=== PATIENT | female | born 1955 | race Caucasian/White ===

== ENCOUNTER 2017-02-19 12:30 | Outpatient (RCR) | payer BC, SELFPAY ==
--- NOTE | 2017-02-03 14:25 | HP.OTEVAL ---
Patient's Visit Information LATONYA LAW is a 61 year old F, referred to Occupational Therapy by Chelsea Robbins DO,, with a diagnosis of left thumb pain. Date of Evaluation: 02/03/17 Occupational Therapist: Vivien Haynes, [facility], CHT - Subjective Subjective: Pt sates she has had left hand pain for almost 5-4 years of pain - pt has had multiple cortisone shots without success. pt states she is working 3 days a week 7 hours a day- pt states following her work days her thumb is painful- pain radiates to IF. This pain limits pt with BADLS and IADLS. - Pain left vector control specialist 5 Pain Intensity Range: 3, 7 - ROM CMC: right 20 left 10 MP: right 50 left 50 IP: right 70 left 55 - Strength Building And Grounds Supervisor: right 50# left 30# Lateral Pinch: right 6# left 6# Tripod Pinch: rigth 4# left 4# with pain - Special Tests CMC Grind: positve - and painful - Goals Goal:: pt will demo a increase in left vector control specialist strength by 10# to increase her ind. with BADLs and IADLS Goal:: pt will report pain no greater than 2/10 with use of ad. eq for joint protction joshua. with BADLS and IADLS. Goal:: pt will dem the understanding of thumb care, ad. eq to protect joints and decrase pain for BADLS . - Rehabilitation General Assessment: pt demo with arthritis deformity of left thumb- pt demo pain with resisitve thumb pinch with mp collapse. pain with resitiance thumb and IF radial motion, Rehabilitation Potential: Fair - Anticipated Interventions Anticipated Interventions: Modalities, Orthoses, Joint Protection/Energy Conservation - Visit Plan Frequency: 1-2x /Week Duration: 3 Weeks General Plan: OT will intiate modalities USx10 min 100% 1.2 3.3 mhz.(to left cmc area) to decrease pain and educate pt on joint protction and ad. eq. to decrease joint stress. pt was given thumb care handout and rec'd Push brace. TEXT: Thank you for the opportunity to evaluate your patient. For Medicare and Medicare HMO plans, please review the plan of care and approve it. It will need to be FAXED BACK to us at [phone] for Medicare purposes. Please let me know if there are questions or concerns regarding this plan of care. Physician Signature: Date:
--- NOTE | 2017-05-12 11:16 | HP.OT.NRP ---
HP - Discharge Summary - Patient Information LATONYA LAW was seen in my office for initial evaluation on 02/03/17. The following Plan of Care was established for this patient: Initial Frequency: 1-2x /Week Initial Duration: 3 Weeks Plan: Cont POC - Anticipated Interventions Anticipated Interventions: Modalities, Orthoses, Joint Protection/Energy Conservation This patient was last seen in our office 02/19/17. Pertinent comments regarding their Occupational therapy will appear below: pt was seen for 5 visits in OT. pt was ed. on work ergo. and pt wearing brace at work and night-pain still limiting pt with work and BADLs. pt was advised to return to for further evaluation. At this point I will be discontinuing this patient from occupational therapy. I would be happy to see this patient again in the future if found appropriate by the physician. Thank you! Vivien Haynes, OTR/L, CHT
== END 2017-02-19 19:00 | disposition home or self-care (01) ==
LOC: OT 12:30
PROVIDERS: Family Provider Family Medicine; PCP Family Medicine; Visit Provider Orthopaedic Surgery
DX: M79.645 Pain in left finger(s) (principal)
CPT/HCPCS: 97035; 97110; 97166

== ENCOUNTER → 2018-02-08 08:04 | Outpatient (CLI) | payer BC, SELFPAY ==
--- NOTE | 2018-02-08 08:07 | BI_ITS ---
MAMMOGRAPHY - BILATERAL SCREENING REASON FOR EXAM: Female, 62 years old. Routine annual screening examination. PERTINENT HISTORY: Non-contributory. Remote left excisional breast biopsy and left stereotactic breast biopsy. TECHNIQUE: Digital bilateral breast melly (3D mammographic acquisition) in the CC and MLO projections. 2-D mediolateral oblique (MLO) and craniocaudad (CC) views of both breasts were obtained. CAD: Full Field Digital Mammography with Computer Added Detection was performed. COMPARISON: Comparison is made with prior study dated January 20, 2017 and December 27, 2015. FINDINGS: Breast Composition: The breasts are heterogeneously dense, which may obscure small masses. There are no dominant masses or suspicious calcifications. Stable small bilateral axillary lymph nodes. No other significant abnormalities are identified. There has been no significant change since the prior study. BI/SCREENING MAMM (CAD), BILAT IMPRESSION: Stable bilateral screening mammogram. Yearly follow-up mammogram recommended. (A) ASSESSMENT CATEGORY: BIRADS Category 2: Benign. A letter regarding these results will be sent to the patient by the facility within 30 days. Approximately 10% of breast cancers are not detected by mammography. A normal mammogram should not delay biopsy of a clinically suspicious abnormality. [id number] Electronically Signed: Bill Noe MD at 9:27 EST Tel [phone], Service support ,
--- OUTSIDE RECORDS SUMMARY | 2018-05-12 12:52 | XMS RPT_ITS ---
:1955 Author Organization OHIP Care Team Providers Name Role Phone Anita Luque Attending Unavailable Malys, Anita Primary Care Unavailable Chelsea Robbins Attending Unavailable Malys, Anita Referring Unavailable Malys, Anita Primary Care Unavailable Chelsea Robbins Attending Unavailable Malys, Anita Referring Unavailable Chelsea Robbins Attending Unavailable Malys, Anita Referring Unavailable Malys, Anita Primary Care Unavailable Chelsea Robbins Attending Unavailable Malys, Anita Primary Care Unavailable PROBLEMS PROBLEMS DATE TYPE CONDITION / CODE ATTENDING STATUS SOURCE 01/17/2018 Unknown M18.12 - Unilateral Chicorelli, Active Suzie primary [facility] osteoarthritis of [facility] carpometacarpal Repository joint, left hand / M18.12(ICD-10) 10/14/2017 Unknown M65.312 - Trigger Chicorelli, Active [place] thumb, left thumb / [facility] M65.312(ICD-10) Hospital Repository 05/13/2017 Unknown M79.645 - Pain in Chicorelli, Active Suzie left finger(s) / [facility] M79.645(ICD-10) Hospital Repository 01/28/2017 Unknown M18.9 - Chicorelli, Active [place] Osteoarthritis of [facility] joint, unspecified / Repository M18.9(ICD-10) 01/28/2017 Unknown M65.4 - Radial Chicorelli, Active Suzie styloid tenosynovitis [facility] [de [place]] / Hospital M65.4(ICD-10) Repository PROCEDURES PROCEDURES No Procedure Records FoundRESULTS RESULTS SCREENING MAMM (CAD), Observed: 02/08/2018 Status: F Source: [facility] 8:07 AM [facility] [address] [place] [address] SCREENING MAMM (CAD), BILAT MR#: [id number] Acct: [id number] Name: LATONYA LAW Rep #: [id number] : 1955 F 62 From: Bill Noe MD PCP: Anita Luque DO Status: [facility] CLI Study: SCREENING MAMM (CAD), BILAT Date of Exam: 02/08/18 Exam# [id number] Ordering Dr: Anita Luque DO MAMMOGRAPHY - BILATERAL SCREENING REASON FOR EXAM: Female, 62 years old. Routine annual screening examination. PERTINENT HISTORY: Non-contributory. Remote left excisional breast biopsy and left stereotactic breast biopsy. TECHNIQUE: Digital bilateral breast melly (3D mammographic acquisition) in the CC and MLO projections. 2-D mediolateral oblique (MLO) and craniocaudad (CC) views of both breasts were obtained. CAD: Full Field Digital Mammography with Computer Added Detection was performed. COMPARISON: Comparison is made with prior study dated January 20, 2017 and December 27, 2015. FINDINGS: Breast Composition: The breasts are heterogeneously dense, which may obscure small masses. There are no dominant masses or suspicious calcifications. Stable small bilateral axillary lymph nodes. No other significant abnormalities are identified. There has been no significant change since the prior study. BI/SCREENING MAMM (CAD), BILAT IMPRESSION: Stable bilateral screening mammogram. Yearly follow-up mammogram recommended. (A) ASSESSMENT CATEGORY: BIRADS Category 2: Benign. A letter regarding these results will be sent to the patient by the facility within 30 days. Approximately 10% of breast cancers are not detected by mammography. A normal mammogram should not delay biopsy of a clinically suspicious abnormality. [id number] Electronically Signed: Bill Noe MD at 9:27 EST Tel [phone], Service support , CC: Anita Luque DO Handkerchief Cutter: Signed ORTHOPEDIC VISIT Observed: 01/20/2018 Status: F Source: [facility] 11:40 AM [facility] Orthopaedics AND Sports Medicine [address] [place] [address] OFFICE VISIT Date of Service: 01/17/18 MR#: [id number] Acct: [id number] Name: LATONYA LAW Rep #: [id number] : 1955 Provider: Chelsea Robbins DO Age/Sex: 62/F Location: [facility] Status: Signed Intake Intake Visit Reasons: left hand Is patient in pain?: Yes Allergies codeine Adverse Reaction (Verified 01/17/18 08:09) Other Medications Calcium (Elemental) [Os-Sy 500] 500 mg PO DAILY@0800 12/31/14 [History Confirmed 10/14/17] Triamterene 37.5MG/Hctz 25MG [Dyazide (G)] 1 cap PO DAILY 12/31/14 [History Confirmed 10/14/17] Vitamin B Complex 1 ea PO DAILY 12/31/14 [History Confirmed 10/14/17] atorvastatin 10 mg tablet 10 mg PO QDAY 01/28/17 [History Confirmed 10/14/17] PFSH Medical History Hypertension (Chronic) Osteoarthritis (Chronic) Social History Smoking Status: Former smoker alcohol intake: current HPI left hand: Details: LATONYA LAW is a 62 year old F here today for continued left hand and thumb pain. Her pain is over her entire thumb. She has increased pain with all activities and it worsens at times. She wears a thumb spica brace while working which is somewhat helpful. She has stiffness and weakness due to not using her hand. Denies numbness, tingling or other associated symptoms. She had an injection on 10/14/17 which was not as helpful as the injection from February. ROS Const Reports system reviewed and no additional complaints, except as docu Eyes Reports system reviewed and no additional complaints, except as docu ENT Reports system reviewed and no additional complaints, except as docu Card Reports system reviewed and no additional complaints, except as docu Resp Reports system reviewed and no additional complaints, except as docu GI Reports system reviewed and no additional complaints, except as docu Reports system reviewed and no additional complaints, except as docu Musc Reports joint pain Skin/Breast Reports system reviewed and no additional complaints, except as docu Neuro Yes system reviewed and no additional complaints, except as docu Psych Reports system reviewed and no additional complaints, except as docu Endo Reports system reviewed and no additional complaints, except as docu Office Procedures Ortho Injections Injections Yes CMC Left Details: Obtained consent for injection. Under sterile conditions, injected the patients left CMC with a 1.5cc cocktail of 1cc bupivacaine and 0.5cc kenalog. The patient tolerated the injection well without any noted complication. Patient should call our office if redness develops, pain worsens or if they have any concerns. Office Meds Kenalog Performing Provider: Chelsea Robbins DO Administered by: Chelsea Robbins DO on 01/17/18 08:27 Dose Route Admin Location Lot Number Expiration DateNDC Gunsmith Apprentice 20 mg Intra-Articularleft [facility] [id number] 01/22/19 4314-0249-05 [facility] Assessment AND Plan 1. Primary osteoarthritis of first carpometacarpal joint of left hand M18.12 Plan Her pain is at the joint with pos grind. She would like to postpone any surgery so today we discussed the risks and benefits of continued conservative care with another injection. Reviewed the post op pain med use and her concerns, will re address at the time she is ready for surgery. Follow up as needed or sooner if pain, swelling, numbness or associated symptoms, or concerns develop. All questions answered. Patient in agreement of plan. Orders Orders: Medications Discontinued: Kenalog (triamcinolone acetonide) Hypibhob95 mg (0.5 mL) Intra-Articular ONCE 0.5 mL 0R nued Reason: Office Medication has been DocuF NS mented as given Coding Level of Care Code Off vis,est,level 3 Diagnoses Primary osteoarthritis of first carpometacarpal joint of left hand M18.12 Laterality: left Osteoarthritis type: primary Additional Codes principal military analyst.[facility] ([id number]) 01/20/18 1140 <Electronically signed by Chelsea Robbins DO> Date Chelsea Robbins DO Cosigner Signature: Date (if applicable) CC: ORTHOPEDIC VISIT Observed: 10/14/2017 Status: F Source: [facility] REPORT 10:30 AM [facility] Orthopaedics AND Sports Medicine [address] [place] [address] OFFICE VISIT Date of Service: 10/14/17 MR#: [id number] Acct: [id number] Name: LATONYA LAW Rep #: [id number] : 1955 Provider: Chelsea Robbins DO Age/Sex: 62/F [place] [facility] [place] Status: Signed Intake Intake Visit Reasons: LEFT THUMB PAIN Is patient in pain?: Yes Allergies codeine Adverse Reaction (Verified 10/14/17 09:17) Other Medications Calcium (Elemental) [Os-Sy 500] 500 mg PO DAILY@0800 12/31/14 [History Confirmed 10/14/17] Triamterene 37.5MG/Hctz 25MG [Dyazide (G)] 1 cap PO DAILY 12/31/14 [History Confirmed 10/14/17] Vitamin B Complex 1 ea PO DAILY 12/31/14 [History Confirmed 10/14/17] atorvastatin 10 mg tablet 10 mg PO QDAY 01/28/17 [History Confirmed 10/14/17] PFSH Medical History Hypertension (Chronic) Osteoarthritis (Chronic) Social History Smoking Status: Former smoker alcohol intake: current HPI LEFT THUMB PAIN: Details: LATONYA LAW is a 62 year old F here today for left thumb pain. She continues to have pain over the base of her thumb. She has a thumb spica brace which is helpful while she is working. She denies any grinding. She complains of a constant achiness. Her pain increases when using her thumb. Patient had an injection on 03/11/17 which was helpful until a few weeks ago. She ices it with no relief. Denies numbness, tingling or other associated symptoms. ROS Const Reports system reviewed and no additional complaints, except as docu Eyes Reports system reviewed and no additional complaints, except as docu ENT Reports system reviewed and no additional complaints, except as docu Card Reports system reviewed and no additional complaints, except as docu Resp Reports system reviewed and no additional complaints, except as docu GI Reports system reviewed and no additional complaints, except as docu Reports system reviewed and no additional complaints, except as docu Musc Reports joint pain, Reports stiffness Skin/Breast Reports system reviewed and no additional complaints, except as docu Neuro Yes system reviewed and no additional complaints, except as docu Psych Reports system reviewed and no additional complaints, except as docu Endo Reports system reviewed and no additional complaints, except as docu Ortho Exam Left Wrist/Hand Skin/Wound: Yes CDI Contralateral Normal: Yes A1 wayne trigger: Yes (thumb) Left Wrist: Yes ROM-Supination 0-90, Yes ROM-Flexion 0-80, Yes ROM-Extension 0-60 and Yes ROM-Pronation 0-80 Sensation: Radial: I, Ulnar: I, Median: I WRIST: cmc grind Office Procedures Ortho Injections Injections Yes Trigger Finger Injection (thumb) Left, Yes CMC Left Details: Obtained consent for injection. Under sterile conditions, injected the patients left cmc and A1 wayne with []. The patient tolerated the injection well without any noted complication. Patient should call our office if redness develops, pain worsens or if they have any concerns. Office Meds Kenalog Performing Provider: Chelsea Robbins DO Administered by: Chelsea Robbins DO on 10/14/17 09:39 Dose Route Admin Location Lot Number Expiration DateNDC Gunsmith Apprentice 10 mg Tendon Sheath IA1 wayne/CMC [id number] 01/22/19 6614-7656-56 [facility] SQUIBB Assessment AND Plan 1. Trigger thumb of left hand M65.312 Plan Reviewed her success with conservative care. Will inject today the wayne and CMC Follow up 3-4months or sooner if pain, swelling, numbness or associated symptoms, or concerns develop. All questions answered. Patient in agreement of plan. Orders Orders: Medications Discontinued: Kenalog (triamcinolone acetonide) Roslzthu81 mg Tendon Sheath Inj. ONCE NS Deejay amaya Reason: Office Medication has been Docu mented as given 2. Primary osteoarthritis of first carpometacarpal joint of left hand M18.12 Coding Level of Care Code No Charge Diagnoses Trigger thumb of left hand M65.312 Primary osteoarthritis of first carpometacarpal joint of left hand M18.12 Laterality: left Osteoarthritis type: primary Additional Codes principal military analyst.cmc () principal military analyst.trig ([id number]) 10/14/17 1030 <Electronically signed by Chelsea Robbins DO> Date Chelsea Robbins DO Cosigner Signature: Date (if applicable) CC: OT D/C OF NON Observed: 05/12/2017 Status: F Source: [facility] RETURNING PT 11:38 AM [facility] [place], [place] [address] Fax REHABILITATION SERVICES DISCHARGE SUMMARY MR#: [id number] Acct: [id number] Name: LATONYA LAW Rep #: [id number] : 1955 61 From: Vivien WILSON CHT Referring DrChrystal: Chelsea Robbins DO Status: REG RCR Eval Date: Discharge Date: HP - Discharge Summary - Patient Information LATONYA LAW was seen in my office for initial evaluation on 02/03/17. The following Plan of Care was established for this patient: Initial Frequency: 1-2x /Week Initial Duration: 3 Weeks Plan: Cont POC - Anticipated Interventions Anticipated Interventions: Modalities, Orthoses, Joint Protection/Energy Conservation This patient was last seen in our office 02/19/17. Pertinent comments regarding their Occupational therapy will appear below: pt was seen for 5 visits in OT. pt was ed. on work ergo. and pt wearing brace at work and night-pain still limiting pt with work and BADLs. pt was advised to return to for further evaluation. At this point I will be discontinuing this patient from occupational therapy. I would be happy to see this patient again in the future if found appropriate by the physician. Thank you! KATIE Lindquist CHT <Electronically signed by Vivien WILSON CHT> 05/12/17 1138 CC: Chelsea Robbins DO; Anita Luque DO MK Signed ORTHOPEDIC VISIT Observed: 04/06/2017 Status: F Source: [facility] REPORT 11:12 AM [facility] [address] [place] [address] [address] [place] [address] OFFICE VISIT Date of Service: 01/28/17 MR#: [id number] Acct: [id number] Name: LATONYA LAW Rep #: [id number] : 1955 Provider: Chelsea Robbins DO Age/Sex: 61/F [place] [facility] [place] Status: Signed Intake Intake Visit Reasons: left thumb Is patient in pain?: Yes Pain scale (1-10): 4 Allergies codeine Adverse Reaction (Verified 12/31/14 14:31) Other Medications Calcium (Elemental) [Os-Sy 500] 500 mg PO DAILY@0800 12/31/14 [History Confirmed 01/28/17] Triamterene 37.5MG/Hctz 25MG [Dyazide (G)] 1 cap PO DAILY 12/31/14 [History Confirmed 01/28/17] Vitamin B Complex 1 ea PO DAILY 12/31/14 [History Confirmed 01/28/17] atorvastatin 10 mg tablet 10 mg PO QDAY 01/28/17 [History Confirmed 01/28/17] [facility] Medical History CMC arthritis, thumb, degenerative (Acute) Social History Smoking Status: Former smoker alcohol intake: current HPI left thumb: Chief Complaint: left thumb Details: LATONYA LAW is a 61 year old F here today for left thumb pain. Patient has had pain for about 3 weeks with no known injury. She has pain over her entire thumb. She notes that it feels like her thumb is dislocated. She has limited range of motion. Patient complains of weakness but denies dropping items. She had an injection on 10/27/16 which was helpful for about 2 months. Patient denies any brace. She denies any formal physical therapy. Patient denies any recent xrays. Denies numbness, tingling or other associated symptoms. She is icing and taking advil for pain. ROS Const Reports system reviewed and no additional complaints, except as docu Eyes Reports system reviewed and no additional complaints, except as docu ENT Reports system reviewed and no additional complaints, except as docu Card Reports system reviewed and no additional complaints, except as docu Resp Reports system reviewed and no additional complaints, except as docu GI Reports system reviewed and no additional complaints, except as docu Reports system reviewed and no additional complaints, except as docu Musc Reports joint pain, Reports muscle weakness Skin/Breast Reports system reviewed and no additional complaints, except as docu Neuro Yes system reviewed and no additional complaints, except as docu Psych Reports system reviewed and no additional complaints, except as docu Endo Reports system reviewed and no additional complaints, except as docu Ortho Exam Left Wrist Contralateral Normal: Yes A1 wayne trigger: Yes (left thumb) Motor: EPL: 5, FDP-2: 5, 1st Dorsal Interosseous: 5, APB: 5 Sensation: Radial: I, Ulnar: I, Median: I WRIST: cmc grind negative, neuro intact. Assessment AND Plan Plan Re-evaluated the last xrays, explained that the OA in the cmc joint can cause the aching, she is also developing a trigger thumb and has a palpable thickness in the tendon at a1 wayne. We can try a thumb spica split for comfort and rest. Gave an OT script today. pain is acutally more dorsal so inconsistent with trigger finger but will try to ellicit with OT to determine best course of action for injection where. Follow up in as needed or sooner if pain, swelling, numbness or associated symptoms, or concerns develop. All questions answered. Patient in agreement of plan. Orders Referrals: 04/06/17 1112 <Electronically signed by Chelsae Robbins DO> Date Chelsea Robbins DO Cosigner Signature: Date (if applicable) CC: ALLERGIES ALLERGIES DATE TYPE / CODE NAME / CODE REACTION SEVERITY SOURCE 01/17/2018 Drug codeine/F006 Other Unknown [facility] All[facility]/4160 [id number]([facility] 81694(SNOMED M) Repository CT) ENCOUNTERS ENCOUNTERS ADMIT/DISCHARGE ACCOUNT ADMITTING ENCOUNTER LOCATION SOURCE NUMBER CLASS 02/08/2018 [id number] Ambulatory Suzie [place] 6 [facility] ing:OPBI Repository 01/17/2018/ [id number] Ambulatory BMSBuilding:B [place] 8 0 [place].[facility] Repository 10/14/2017/ [id number] Ambulatory BMSBuilding:B [place] 8 0 [facility] Repository 02/19/2017/ [id number] Ambulatory Suzie [place] 7 8 [facility] ing:OT Repository 01/28/2017/ [id number] Ambulatory BMSBuilding:B Suzie 7 9 [place].[facility] Repository PAYERS PAYERS ENCOUNTER GUARANTOR PAYER SUBSCRIBER SOURCE 02/08/2018 SHEKHAR E Primary SHEKHAR E Suzie [id number] S Insurance:ANTHEMPolic CHIZMADIADOB: [facility] Sil[facility], y Number: [id number] [address]Qdy: [id number] Repository Date:9930-97-54MJ [address] () [id number] [place] [address]PI: 02/08/2018 Secondary NOT GIVENUNK Suzie Insurance:SELF PAY [facility] Number: Effective Repository Date:2017-12-23 01/17/2018 Shekhar E Primary Shekhar E Suzie [id number] S Insurance:ANTHEMPolic ChizmadiaDOB[facility], y Number: [id number] Medical Center [address]Wfv: [id number] Repository Date:2791-90-18HB [address] () [id number] [place] [address]XD: 01/17/2018 Secondary NOT GIVENUNK [place] Insurance:SELF PAY [facility] Number: Effective Repository Date:2018-01-17 10/14/2017 Shekhar E Primary Shekhar E Suzie [id number] S Insurance:ANTHEMPolic ChizmadiaDOB: [facility], y Number: [id number] Medical Center [address]Fmg: [id number] Repository Date:4385-85-80RW [address] () [id number] [address]TN: 10/14/2017 Secondary NOT GIVENUNK Suzie Insurance:SELF PAY [facility] Number: Effective Repository Date:2017-10-14 02/19/2017 Shekhar E Primary Shekhar E Suzie [id number] S Insurance:ANTHEMPolic ChizmadiaDOB: [facility] Vega, y Number: [id number] Medical Center [address]Fbw: [id number] Repository Date:9700-52-96[address] () [id number] [address]BL: 02/19/2017 Secondary NOT GIVENUNK [place] Insurance:SELF PAY [facility] Number: Effective Repository Date:2017-02-01 01/28/2017 Shekhar E Primary Shekhar E Suzie [id number] S Insurance:ANTHEMPolic ChizmadiaDOB: [facility], y Number: [id number] Medical Center [address]Hrq: [id number] Repository Date:0884-22-56YN [address] () [address], [place] [address]HM: 01/28/2017 Secondary NOT GIVENUNK [place] Insurance:SELF PAY [facility] Number: Effective Repository Date:2017-01-23
== END ==
PROVIDERS: Family Provider Family Medicine; PCP Family Medicine; Visit Provider Family Medicine
DX: Z12.31 Encounter for screening mammogram for malignant neoplasm of breast (principal)
CPT/HCPCS: 77063; 77067

== ENCOUNTER → 2018-06-01 10:30 | Outpatient (CLI) | payer BC, SELFPAY ==
[2017-03-11 10:54] VITALS: BMI 21.6
[2018-06-02 15:35] LABS: HPV Reflexed? NOT INDICATED
== END ==
PROVIDERS: Family Provider Family Medicine; PCP Family Medicine; Visit Provider Family Medicine
DX: Z12.4 Encounter for screening for malignant neoplasm of cervix (principal)
CPT/HCPCS: 88175; G0145

== ENCOUNTER → 2018-06-15 07:56 | Outpatient (CLI) | payer BC, SELFPAY ==
[2017-03-11 10:54] VITALS: BMI 21.6
[2018-06-15 10:31] LABS: Absolute Lymphocyte Count 1.48 X10^3/ul (0.83-4.51); Absolute Neutrophil Count 3.4 X10^3/uL (2.0-7.7); Basophil# 0.02 X10^3/uL; Basophil% 0.4 % (0-1); Eosinophil# 0.08 X10^3/uL; Eosinophils% 1.5 % (0-5); Hematocrit 44.1 % (37-47); Hemoglobin 14.5 g/dl (12.0-15.0); Lymphocyte # 1.48 X10^3/ul (4.0); Lymphocyte % 27.8 % (19-41); Mean Corp Hgb Conc 32.9 g/gl (32-36); Mean Corpuscular Hgb 32.6 pg (27.0-32.0); Mean Corpuscular Volume 99.1 fL (81-99); Mean Platelet Vol. 10.7 fl (6.2-12.0); Monocyte# 0.35 X10^3/uL; Monocyte% 6.6 % (0-10); Neutrophil # 3.39 X10^3/uL (2.7-7.7); Neutrophil % 63.5 % (47-70); Platelet Count 242 K/mm3 (150-450); RBC Distribution Width CV 12.3 % (11.6-14.6); RBC Distribution Width SD 44.5 fl (35.1-43.9); Red Blood Count 4.45 M/mm3 (4.2-5.4); White Blood Count 5.3 K/mm3 (4.4-11.0)
[2018-06-15 10:36] LABS: POSITIVE COUNT NO; POSITIVE DIFFERENTIAL NO; POSITIVE MORPHOLOGY NO
[2018-06-15 10:50] LABS: ALB/GLOB Ratio 1.1 RATIO (0.9-2.4); AST(SGOT) 25 U/L (15-37); Alanine Aminotransfer ALT/SGPT 33 U/L (13-56); Albumin, Serum 3.9 g/dL (3.2-5.0); Alkaline Phosphatase 67 U/L (45-117); Anion Gap 6 (5-15); BUN 23 mg/dL (7-18); BUN/Creat Ratio 23.7 RATIO (10-20); Calcium,Total 9.3 mg/dL (8.5-10.1); Chloride 105 mmol/L (98-107); Cholesterol 188 mg/dL (200); Creatinine, Serum 0.97 mg/dL (0.55-1.02); EST Glomerular Filtration Rate 62 mL/min (>60); Est Glom Filt Rate - Afr Amer 75 mL/min (>60); Globulin 3.4 g/dL (2.2-4.2); Glucose 91 mg/dL (74-106); High Density Lipoprotein 105 mg/dL; Protein, Total 7.3 g/dL (6.4-8.2); Sodium Level 142 mmol/L (136-145); Triglycerides 50 mg/dL; Very Low Density Lipoprotein 10 mg/dL (5-40)
== END ==
PROVIDERS: Family Provider Family Medicine; PCP Family Medicine; Referring Provider Family Medicine; Visit Provider Family Medicine
DX: Z51.81 Encounter for therapeutic drug level monitoring (principal); E78.5 Hyperlipidemia, unspecified
CPT/HCPCS: 36415; 80053; 80061; 85025

== ENCOUNTER → 2018-09-09 08:52 | Outpatient (CLI) | payer BC, SELFPAY ==
[2018-09-09 08:46] VITALS: BMI 21.6
--- NOTE | 2018-09-09 08:54 | RAD_ITS ---
STUDY: X-RAY - LEFT KNEE REASON FOR EXAM: Female, 63 years old. Pain. TECHNIQUE: 4 view(s) of the knee. COMPARISON: None. FINDINGS: Normal visualized distal femur. Normal visualized proximal tibia and fibula. Normal proximal tibiofibular articulation. There is no demonstrated fracture. Mild narrowing of the medial femorotibial compartment, with no osteophytes. Normal lateral femorotibial compartment. Normal patellofemoral articulation. There is a soft tissue prominence in the suprapatellar region suggesting a small volume joint effusion. The soft tissue structures are unremarkable. RAD/Knee 4 or More Views IMPRESSION: No fracture or dislocation. Mild effusion. Mild narrowing of the medial tibiofemoral compartment. Electronically Signed: Dillon Reed MD at 16:48 EDT , Service support ,
== END ==
PROVIDERS: Family Provider Family Medicine; PCP Family Medicine; Referring Provider Physician Assistant; Visit Provider Physician Assistant
DX: M25.562 Pain in left knee (principal)
CPT/HCPCS: 73564

== ENCOUNTER → 2018-10-03 07:10 | Outpatient (CLI) | payer BC, SELFPAY ==
[2018-09-09 08:46] VITALS: BMI 21.6
--- NOTE | 2018-10-03 07:12 | MRI_ITS ---
STUDY: MRI LEFT KNEE REASON FOR EXAM: Female, 63 years old. The patient presents with a history of medial knee pain x several months. TECHNIQUE: Standardized fat and water weighted pulse sequences were obtained in all 3 orthogonal planes. COMPARISON: None. FINDINGS: There is intrameniscal signal hyperintensity of the posterior horn of the medial meniscus consistent with an intrameniscal tear with suspected limited articular extension into the posterior horn (coronal proton density series 5, image 13; sagittal proton density series 3, image 12). There is diffuse attrition of the free edge of the body of the medial meniscus with a small radial edge tear of the mid body region measuring 2.5 mm in its AP dimension. There is diffuse, greater than 50% thickness articular cartilage loss of the medial femorotibial compartment. Normal medial femoral condyle and tibial plateau. There is ligamentous thickening of the MCL consistent with a remote MCL sprain. There is tendinosis/tendinitis of the distal insertion semimembranosus tendon (axial T2 fat sat series 2, image 23; sagittal proton density series 3, image 10). There is an extensive horizontal tear of the lateral meniscus involving the entire anterior horn and body of the lateral meniscus (sagittal T2 fat sat series 4, images 15-20). Normal posterior horn lateral meniscus. There is diffuse, less than 50% thickness articular cartilage loss of the lateral femorotibial compartment. Normal lateral femoral condyle and tibial plateau. Normal proximal tibiofibular articulation. Normal lateral collateral (fibular) ligament. Normal popliteus tendon. Normal biceps femoris tendon. There is osseous roof impingement and ligamentous distortion of the ACL (sagittal proton density series 3, image 22). Normal posterior cruciate ligament (PCL). Normal congruent patellofemoral articulation. There is diffuse, greater than 50% thickness articular cartilage loss of the patellofemoral compartment. Normal medial and lateral patellar retinaculum. Normal quadriceps tendon. Normal patellar tendon. Normal Hoffa's fat pad. There is a moderate volume joint effusion. There is a large leaking Trimble's cyst (sagittal T2 series 4, image 9; axial T2 series 2, images 18-26). The Trimble's cyst measures approximately 47 mm in its craniocaudal dimension. Extravasated fluid from the patient's Trimble's cyst is migrated along the posterior medial knee compartment (coronal T2 fat sat series 6, at 14). The otherwise visualized osseous structures are unremarkable. MRI/Lower Ext Joint Only (Routine) IMPRESSION: 1. Extensive free edge fraying of the body of the medial meniscus with a small radial edge tear of the mid body region, and with an intrameniscal tear of the posterior body and posterior horn with suspected limited articular extension. 2. Extensive horizontal tear of the anterior horn and body of the lateral meniscus. 3. Remote MCL sprain. 4. Semimembranosus tendinosis/tendinitis at its distal insertion. 5. Osseous roof impingement upon the ACL. 6. Tricompartment chondral loss, as described above. 7. Moderate volume joint effusion with a large leaking Trimble's cyst. Electronically Signed: Lane Myrick DO at 8:58 EDT Tel , Service support ,
== END ==
PROVIDERS: Family Provider Family Medicine; PCP Family Medicine; Referring Provider Orthopaedic Surgery; Visit Provider Orthopaedic Surgery
DX: M17.12 Unilateral primary osteoarthritis, left knee (principal); M25.562 Pain in left knee
CPT/HCPCS: 73721

== ENCOUNTER 2018-10-19 08:12 | Day surgery (SDC) | payer BC, SELFPAY ==
[2018-10-06 09:19] VITALS: BMI 21.6
--- NOTE | 2018-10-06 09:39 | HP_ITS ---
I have re-examined the patient. There are no clinical changes since date of exam.Intake Vital Signs 10/06/18 Body Mass Index (BMI) 21.6 Intake Visit Reasons: Left Knee Allergies codeine Adverse Reaction (Verified 05/31/18 08:58) Other Medications Calcium (Elemental) [Os-Sy 500] 500 mg PO DAILY@0800 12/31/14 [History Confirmed 10/06/18] Triamterene 37.5MG/Hctz 25MG [Dyazide (G)] 1 cap PO DAILY 12/31/14 [History Confirmed 10/06/18] Vitamin B Complex 1 ea PO DAILY 12/31/14 [History Confirmed 10/06/18] atorvastatin 10 mg tablet 10 mg PO QDAY 01/28/17 [History Confirmed 10/06/18] PFSH Medical History (Updated 03/11/17 @ 11:08 by Deejay Angela) Hypertension (Chronic) Osteoarthritis (Chronic) Social History (Updated 10/06/18 @ 11:36 by Chelsea Robbins DO) Smoking Status: Former smoker alcohol intake: current HPI Left Knee: Surgical H&P: Yes Details: Parts of this documentation were recorded by a scribe, this documentation accurately reflects the service provided and the decisions made by me, Chelsea Robbins DO 10/06/18 0916. LATONYA LAW is a 63 year old F here today for left knee pain. Patient states the injection last month was helpful for about 1 week then her medial sided knee pain returned. Patient had an MRI of the left knee on Wednesday and is here to review this MRI. Denies numbness, tingling or other associated symptoms. ROS Const Reports system reviewed and no additional complaints, except as docu Eyes Reports system reviewed and no additional complaints, except as docu ENT Reports system reviewed and no additional complaints, except as docu Card Reports system reviewed and no additional complaints, except as docu Resp Reports system reviewed and no additional complaints, except as docu GI Reports system reviewed and no additional complaints, except as docu Musc Reports as per HPI Skin/Breast Reports system reviewed and no additional complaints, except as docu Neuro Yes system reviewed and no additional complaints, except as docu Psych Reports system reviewed and no additional complaints, except as docu Endo Reports system reviewed and no additional complaints, except as docu Perez/Lymph Reports system reviewed and no additional complaints, except as docu Aller/Immun Reports system reviewed and no additional complaints, except as docu Ortho Exam Left Knee Knee ROM: Yes ROM-Extension -20 to 0, No ROM-Flexion 0-140 Examination: Yes med jt line tenderness, Yes Pain with flexion Apprehension with Lateral Translation: No Patellar Tilt Normal: Yes Assessment & Plan Problems 1. Degenerative tear of meniscus of left knee M23.307 Plan Personally reviewed the MRI and explained that she has meniscus degeneration, cartilage thinning, OA. Her treatment options are do nothing, bracing, serial steroid injections, gel injections or prp, knee scope for debridement though her OA pain will remain or oral nsaids. Reviewed the pre-operative plans with the patient. Risks and benefits of the procedure were fully explained, including but not limited to infection, neurovascular injury, continued pain, arthritis, stiffness, need for further surgery, re-injury, DVT, PE, general risks of anesthesia, and loss of limb or life. The patient understands all the risks and does wish to proceed with written consent. Follow up post op or sooner if pain, swelling, numbness or associated symptoms, or concerns develop. All questions answered. Patient in agreement of plan. Coding Level of Care Code Off vis,est,level 4 Diagnoses Degenerative tear of meniscus of left knee M23.307 10/06/18 0250 <Electronically signed by Chelsea pitts DO> Date _ Chelsea Robbins DO
[2018-10-19] VITALS (7 sets, daily range): BP systolic 135–182; BP diastolic 73–88; PULSE 75–93; RESP 16–18; TEMP 35.7–36.6; O2SAT 92–100; BMI 20.2
[2018-10-19] MEDS: Lactated Ringers 1,000 ML 75 ML IV (08:59)
[2018-10-19] MEDS: Cefazolin 2 GM in 0.9% Normal Saline 100 ML IV (11:55)
--- NOTE | 2018-10-19 11:55 | DCINST_ITS ---
Discharge Diet: No Restrictions - remove dressings in 4 days and apply bandaids to incision sites, may get incision wet at that time, wbat left leg, call with concerns- calf pain or other issues, Discharge Activity: May Not Drive May shower in (days): 1 Ice area for (Minutes): 20 - Every hour while awake. Weight Bearing Status: Weight bearing as tolerated Keep extremity elevated above heart level: Operative Extremity Call your doctor if your incision/area has: Continuous Slow Oozing, Sudden Increased Bleeding, Increased Pain/ Swelling, Increased Redness, Foul Smelling Discharge Call your doctor if you observe: Fever of 101 or Higher, Coldness, Increased Pain, Numbness or Tingling, Change in Color, Calf discomfort Allergies/Adverse Reactions: Allergies codeine Adverse Reaction (Verified 10/12/18 14:33) Other Medications to take at Discharge Calcium (Elemental) [Os-Sy 500] 500 mg PO DAILY@0800 12/31/14 Triamterene 37.5MG/Hctz 25MG [Dyazide (G)] 1 cap PO DAILY 12/31/14 Vitamin B Complex 1 ea PO DAILY 12/31/14 atorvastatin 10 mg tablet 10 mg PO QDAY 01/28/17 buPROPion XL [Wellbutrin Xl] 150 mg PO BID 10/12/18 Hydrocodone Bitart/Apap 5-325 [[place] 5MG-325MG] 1 - 2 tab PO Q6H PRN PRN 5 Days #40 tab 10/19/18 The following prescriptions were given: Hydrocodone Bitart/Apap 5-325 [[place] 5MG-325MG] 1 - 2 tab PO Q6H PRN PRN 5 Days #40 tab PRN Reason: Pain Transmission Status: Received by [facility] Primary Care Physician: Anita Luque DO [Primary Care Provider] - Test Results: Test results from this visit will be discussed in further detail at your follow- up appointment, if applicable. Please Follow Up With: Chelsea Robbins DO - [phone]
--- NOTE | 2018-10-19 11:56 | OP.PCM_ITS ---
Report of Operation Date of Procedure: 10/19/18 Pre-Operative Diagnosis: left knee medial and lateral meniscus tear, osteo arthritis Post-Operative Diagnosis: same Surgery/Procedure Performed:: salk, pmm, plm, cyst debridement at acl insertion piercing specialist: Leland Chopra Type of Anesthesia:: General Anesthesiologist: Cuong Smith Estimated Blood Loss (mL): min Fluids Replaced: 1200ml lr Description of Procedure: Preop note Patient is a 63-year-old female with continued left knee pain. Patient failed conservative treatment and elected to proceed with MRI as continued pain. MRI confirms arthritis as well as medial and lateral meniscus tears. Risk benefits alternatives surgery discussed with patient. Risks including but not limited to blood loss, blood clot, infection, neurovascular, failure procedure, loss of life and loss of limb. Patient is aware and like proceed with left knee arthroscopy repair as indicated. Operative note Patient seen and examined preoperative holding area. Left knee was marked. Patient brought to the operating placed supine on the operating table. Sign in, anesthesia, antibiotics were administered. Left knee was prepped and draped usual sterile fashion with a tourniquet around her upper thigh. All bony promises well-padded SCDs placed on her contralateral limb. We then marked out our incision for anterolateral anteromedial portal placement. The left leg was then elevated same data communications engineer rates her pressure 250 torr. A timeout was performed. We then began a diagnostic arthroscopy. Anterior lateral portal was created. Able to visualize the patellofemoral joint which was intact. There were no loose bodies in the gutters. We then created an anterior medial portal under direct visualization. The probe of the posterior horn of the medial meniscus which was unstable. We then used accommodation of shaver and a basket to debride back the unstable portion of the medial meniscus we then reinserted a shaver probe back into the knee and we had good remnant meniscus. The ACL PCL were present within the notch. There is some grade 3 thinning of the medial fem oral condyle medial tibial plateau but there was no gross bone exposed no kissing lesions. The moved anterolateral aspect there was a large cyst in the anterolateral aspect where the lateral meniscus inserted close to the ACL insertion and this was debrided back with a shaver. The lateral meniscus had a degenerative tear as well in the anterior horn it was full, and more of a maceration versus a definitive discrete tear and this was gently debrided back to stable portion of the meniscus. There was also unstable mid body tear medial meniscus which was gently resected back with a shaver as well. We then reinserted the probe to ensure that we had a stable remnant of the meniscus which we did have. The knee was irrigated with copious amounts of sterile saline the tourniquet was deflated for a total working time of 30 minutes. Patient tired procedure well no comp occasions [facility] recovery room in stable condition. Postop note Weight-bear as tolerated left leg next Family will get pictures in 2 weeks next Hospital pharmacy has prescriptions Called increased pain numbness tingling or further issues arises This note was generated with [employer] dictation software. It may contain incorrect words, spelling, and punctuation that were not noted in checking the note before signing.
[2018-10-19] MEDS: Mupirocin Ointment 22gm Tube 1 APPLIC (12:42)
[2018-10-19] MEDS: Bupiv/Epi 0.25% 30 ML Vial (12:43)
== END 2018-10-19 15:01 | disposition home or self-care (01) ==
LOC: SDC 08:13 → AC 08:14
PROVIDERS: Family Provider Family Medicine; PCP Family Medicine; Referring Provider Orthopaedic Surgery; Visit Provider Orthopaedic Surgery
PROC: (CPT 29870; principal; 2018-10-19 09:50)
DX: M23.307 Other meniscus derangements, unspecified meniscus, left knee (principal); M17.12 Unilateral primary osteoarthritis, left knee; I10 Essential (primary) hypertension; Z87.891 Personal history of nicotine dependence; Z88.5 Allergy status to narcotic agent; E78.00 Pure hypercholesterolemia, unspecified; F41.9 Anxiety disorder, unspecified
CPT/HCPCS: 29881; J7120

== ENCOUNTER 2018-12-01 13:00 | Outpatient (RCR) | payer BC, SELFPAY ==
[2018-11-01 08:31] VITALS: BMI 20.2
--- NOTE | 2018-11-08 16:29 | HP.PTEVAL ---
Patient's Visit Information LATONYA LAW is a 63 year old F referred to Physical Therapy by Chelsea Robbins DO with a diagnosis of L Knee Arthroscopy. Date of Evaluation: 11/08/18 Physical Therapist: Ashley Hargrove DPT - Visit Plan Frequency: 2x /Week Duration: 4 Weeks Plan: Focus on LE/core s/s, improving flexibility/ROM, gait training, stair training, decreasing pain, & functional training to return pt. to occupation. - Subjective Findings: 10/19 knee scope - both menisci, cartilage, cyst. [place] pretty good after surgery. Two story home, 10-12 steps upstairs, 1 step into the house. Lives , who helps when needed. Pain at front of L knee & behind. Describes pain as radiating & burning. Disrupts sleep throughout the night - sleeps on R side in bed w/ pillow b/w knees. Worst: 11/01 Aggravating factors: Steps, getting out of bed in the morning, prolonged sitting, bending/twisting/picking up items, ADL's. Best: 04/03 Relieving factors: ice, advil - very little effect. Pain dissappears immediatley following activities. Some tingling down the leg to calf. Leisure activities: Yard work, bike riding, walking. 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 Stitches removed 11/01/18. Follw-up appointment in Dec. PMH/Meds: HTN (controlled), no significant. Had previous knee procedure to clear up cartilage 40 years ago. - Objective Posture: RS, FH - maintained w/ V/C, could not maintain. Gait: antalgic gait, decreased harmony, slight B toe-out, lacks TKE in stance phase. Stairs: asc - slight B toe-out, B UE support, painful, turns sideways to ease pain desc - lacks proper eccentric control, turns sideways to ease pain & make comfortable, B UE support, more painful. HR/TR: WFL (mild increase in pain) UE support. SLS: L 5 seconds & then LOB righted by R LE & UE support. ROM: Knee Ext: -4 degrees, Flex: 110 degrees Ankle WFL. Flexibility: Gastroc: severe, Soleus: mod. Hasmtring: severe. Sensation: WNL to gross B touch. Palpation: TTP at medial/posterior knee. Observation incisions healing well - Goals Goal 1:: Pt. will be I w/ HEP & progression Goal Time Frame: 4-6 Weeks Goal 2:: Pt. will demo SLS for 15 seconds w/ no UE support Goal Time Frame: 4-6 Weeks Goal 3:: Pt. will asc/desc stairs w/ reciprocal pattern & no UE support. Goal Time Frame: 4-6 Weeks Goal 4:: Pt. will amb. >300 ft. w/ normalized gait pattern Goal Time Frame: 4-6 Weeks Goal 5:: Pt. will demo 5/5 strength for R knee - Rehabilitation Potential Physical Therapy Diagnosis: Presents w/ hypomobility, antalgic gait, weakness, impaired muscle performance, difficulty asc/desc stairs which leads to pain with performance of ADL's. Rehabilitation Potential: Good - Anticipated Interventions Patient/Client Instruction: Educate patient on: Condition For the Purpose of:: To decrease pain Therapeutic Exercise to Include: Strength training, Endurance training, Balance training, Coordination, Agility training, Body mechanics, Flexibilty training, Gait and locomotor training, Passive ROM, Active ROM, Dynamic Lumbar Stabilization For the Purpose of:: To improve performance and independence with ADL's Functional Training to Include: Gait training For the Purpose of:: To improve muscle performance and motor function IF ES: Yes Cryotherapy (ice pack, ice massage): Yes Thermo therapy (hot pack): Yes For the Purpose of:: To decrease pain Thank you for the opportunity to evaluate your patient. For Medicare and Medicare HMO plans, please review the plan of care and approve it. It will need to be FAXED BACK to us at [phone] for Medicare purposes. For Medicare only, by signing this I certify the plan of care. Please let me know if there are questions or concerns regarding this plan of care. Physician Signature: Date:
--- NOTE | 2019-01-18 10:41 | HP.PT.NRP ---
HP - Discharge Summary (1) - Patient Information LATONYA LAW was seen in my office for initial evaluation on 11/08/18. The following Plan of Care was established for this patient: Initial Frequency: 2x /Week Initial Duration: 4 Weeks - Anticipated Interventions Patient/Client Instruction: Educate patient on: Condition For the Purpose of:: To decrease pain Therapeutic Exercise to Include: Strength training, Endurance training, Balance training, Coordination, Agility training, Body mechanics, Flexibilty training, Gait and locomotor training, Passive ROM, Active ROM, Dynamic Lumbar Stabilization For the Purpose of:: To improve performance and independence with ADL's Functional Training to Include: Gait training For the Purpose of:: To improve muscle performance and motor function IF ES: Yes Cryotherapy (ice pack, ice massage): Yes Thermo therapy (hot pack): Yes For the Purpose of:: To decrease pain This patient was last seen in our office . Pertinent comments regarding their Physical therapy will appear below: Patient has not attended therapy in over 4 weeks, appropriate for d/c and return to MD for further evaluation as needed. At this point I will be discontinuing this patient from physical therapy. I would be happy to see this patient again in the future if found appropriate by the physician. Thank you! Ashley Hargrove DPT
== END 2018-12-01 19:00 | disposition home or self-care (01) ==
LOC: PT 13:00
PROVIDERS: Family Provider Family Medicine; PCP Family Medicine; Referring Provider Orthopaedic Surgery; Visit Provider Orthopaedic Surgery
DX: Z98.890 Other specified postprocedural states (principal)
CPT/HCPCS: 97014; 97110; 97161; G0283

== ENCOUNTER → 2019-01-10 10:22 | Outpatient (CLI) | payer BC, SELFPAY ==
[2019-01-10 10:16] VITALS: BMI 20.1
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
== END ==
PROVIDERS: Family Provider Family Medicine; PCP Family Medicine; Referring Provider Orthopaedic Surgery; Visit Provider Orthopaedic Surgery
DX: M25.512 Pain in left shoulder (principal); M79.602 Pain in left arm
CPT/HCPCS: 72050; 73030

== ENCOUNTER → 2019-01-30 10:11 | Outpatient (CLI) | payer BC, SELFPAY ==
[2019-01-24 08:19] VITALS: BMI 20.1
--- NOTE | 2019-01-30 10:13 | MRI_ITS ---
STUDY: MRI LEFT SHOULDER REASON FOR EXAM: Left shoulder pain and limited range of motion, fall in November. TECHNIQUE: Standardized fat and water weighted pulse sequences were obtained in all 3 orthogonal planes. COMPARISON: Radiographs 01/10/2019. FINDINGS: There is mild supraspinatus tendinosis (T2 coronal images 9-12) without discrete tendon tear. Normal infraspinatus tendon. Normal subscapularis tendon. Normal teres minor tendon. Normal supraspinatus muscle. Normal infraspinatus muscle. Normal subscapularis muscle. Normal teres minor muscle. There is a small glenohumeral joint effusion with fluid extending into the bicipital tendon sheath. There is mild cystic change of the posterior aspect of the greater tuberosity. Normal biceps labral complex. Normal intracapsular long biceps tendon. Normal labrum. Normal capsulo- ligamentous complex. There is acromioclavicular arthrosis with mild hypertrophic changes efface the subacromial fat (T2 sagittal image 9). There is a Type II morphology (curved), with a neutral orientation. There is a small volume of subacromial-subdeltoid bursal fluid (T2 coronal images 11-14). Normal visualized coracohumeral and coracoacromial ligaments. Normal deltoid muscle. Normal trapezius muscle. MRI/Upper Ext Joint Only(Routine) IMPRESSION: Mild supraspinatus tendinosis without demonstrated rotator cuff tear. Acromioclavicular arthrosis. Mild subacromial-subdeltoid bursitis. Small glenohumeral joint effusion. Electronically Signed: Isaac Mahoney MD at 12:21 EST Tel , Service support ,
== END ==
PROVIDERS: Family Provider Family Medicine; PCP Family Medicine; Referring Provider Orthopaedic Surgery; Visit Provider Orthopaedic Surgery
DX: S49.92XA Unspecified injury of left shoulder and upper arm, initial encounter (principal); S46.002A Unspecified injury of muscle(s) and tendon(s) of the rotator cuff of left shoulder, initial encounter
CPT/HCPCS: 73221

== ENCOUNTER 2019-02-08 13:30 | Outpatient (RCR) | payer BC, SELFPAY ==
[2019-01-10 10:16] VITALS: BMI 20.1
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
--- NOTE | 2019-01-23 17:28 | HP.PTREVAL ---
Chelsea Robbins, DO, It has been my pleasure to treat LATONYA LAW over the last 6 visits for RIGHT ROTATOR CUFF INJURY/WEAKNESS. Please see the progress note below for an update on the physical therapy plan of care! Subjective: PATIENT REPORTS SHE IS NO BETTER AND NO WORSE. EXPRESSING FRUSTRATION. Objective/Function: IT HAS BEEN 12 DAYS SINCE PATIENTS INITIAL PHYSICAL THERAPY EVALUATION. RE-CHECK DUE TO PATIETNS FRUSTRATION. PATIENT TEARFUL AT TIMES. ADMITS TO [employer] PRESSURED TO FIGURE THIS OUT LATOYA DUE TO INSURANCE RELATED END OF THE YEAR ISSUES. UPON EXAM TODAY PATIENTS LEFT SHOULDER ROM HAS IMPROVED ALL PLANES. RECOMMEND CONT PT TOLERATED UNTIL DR. ROBBINS RECOMMENDS OTHERWISE. TODAY: Cervical Mvmt Loss: Flex: NIL. Pro: NIL. Ext: MOD. Ret: MOD. RSB: MIN. LSB: MIN. R Rot: MIN. L Rot: MIN. UE ROM deficit: RIGHT UE WFL. LEFT SHLD FLEX IN SITTING 115 DEG, ABD 115 DEG. SUPINE SHLD FLEX 126 DEG, ABD 123 DEG, IR 58 DEG, ER 51 DEG (ROTATION MEASURED WITH 65 DEG ABD. Plan Plan: LEFT SHOULDER US, ROM, STRETCHING AND STRENGTHENING TO HELP MEET SET GOALS. Goals Goal 1:: DECREASE C/O LEFT SHLD AND UPPER ARM PAIN Goal Time Frame: 4-6 Weeks Goal Progress: Not Progressing Goal 2:: INCREASE FUNCTIONAL ROM OF LEFT UE Goal Time Frame: 4-6 Weeks Goal Progress: Progressing Goal 3:: INCREASE FUNCTIONAL STRENGTH OF LEFT UE Goal Time Frame: 4-6 Weeks Goal 4:: IMRPOVE REACHING, LIFTING, ADL, WORK AND SLEEP FUNCTION Goal Time Frame: 4-6 Weeks Goal 5:: INDEP HEP Goal Time Frame: 4-6 Weeks Anticipated Interventions Patient/Client Instruction: Educate patient on: Condition, Plan of Care, Risk Factors, Benefits of Fitness Program For the Purpose of:: To improve self management Therapeutic Exercise to Include: Strength training, Passive ROM, Active ROM, Scapular Strength/Stabilization For the Purpose of:: To decrease pain, To increase ROM, To improve muscle performance and motor function, To increase tolerance to activity/condition/position, To improve ability of physical actions for home/community/work/leisure Cryotherapy (ice pack, ice massage): Yes Thermo therapy (hot pack): Yes Ultrasound (thermal/non thermal): Yes For the Purpose of:: To decrease pain, To decrease swelling/inflammation, To improve nutrient delivery to tissue Please do not hesitate to contact me at [phone] by phone or if you have questions or concerns regarding this new plan of care! Sincerely, Francoise Lyons, PT, Cert MDT
--- NOTE | 2019-02-08 16:05 | HP.PTDCSUM ---
HP - PT D/C Summary It has been my pleasure to treat LATONYA LAW under orders from Chelsea Robbins DO, for the diagnosis of RIGHT ROTATOR CUFF INJURY/WEAKNESS for a total of 9 visit(s). Discharge Date: Please see the following information for a summary of their discharge status. - Subjective Subjective: PATIENT REPORTS HAVING A CORTISONE SHOT IN HER LEFT SHOULDER BY DR. ROBBINS LAST WEDNESDAY WHICH HAS HELPED SOME. PATIENT REPORTS PAIN IN LEFT SHOULDER TRYING TO TIE HER APRON IN THE BACK. REACHING UP AND DOWN IS BETTER - STOCKING IS A LOT BETTER. PATIENT REPORTS SHE HAS BEEN DOING HER HEP BUT NOT FAITHFULLY. AT THIS POINT SHE WOULD LIKE TO CONTINUE INDEP EX - Pain Left Shoulder Pain Intensity (Out of 10): Unrated - Overall Improvement % Improvement: 75 - Objective Objective/Function: PATIENT HAS MADE PROGRESS INTERMS OF LEFT UE PAIN, ROM AND STRENGTH AND HAD A CORTISONE SHOT LAST WEEK. SHE WOULD LIKE TO STOP FORMAL PT AND DO A HEP INDEP'LY AT THIS POINT. SHE STILL HAS LIMITED LEFT UE FUNCTION ALL PLANES. LEFT SHLD AROM: FLEX 157 DEG (SUPINE), ABD 120 DEG (IN SUPINE), IR 70 DEG, ER 55 DEG. - Goals Goal 1:: DECREASE C/O LEFT SHLD AND UPPER ARM PAIN Goal Progress: Progressing Goal 2:: INCREASE FUNCTIONAL ROM OF LEFT UE Goal Progress: Progressing Goal 3:: INCREASE FUNCTIONAL STRENGTH OF LEFT UE Goal Progress: Progressing Goal 4:: IMRPOVE REACHING, LIFTING, ADL, WORK AND SLEEP FUNCTION Goal Progress: Progressing Goal 5:: INDEP HEP Goal Progress: Progressing - Plan Plan: D/C TO HEP AT PATIENTS REQUEST. - D/C Information If there are questions or concerns regarding this patient's physical therapy, please feel free to call me at [phone]. Thank you for the referral of this patient. Sincerely, Francoise Lyons, PT, Cert MDT
== END 2019-02-08 19:00 | disposition home or self-care (01) ==
LOC: PT 13:30
PROVIDERS: Family Provider Family Medicine; PCP Family Medicine; Referring Provider Orthopaedic Surgery; Visit Provider Orthopaedic Surgery
DX: M75.102 Unspecified rotator cuff tear or rupture of left shoulder, not specified as traumatic (principal); R53.1 Weakness
CPT/HCPCS: 97014; 97035; 97110; 97162; 97530; G0283

== ENCOUNTER → 2019-02-09 13:16 | Outpatient (CLI) | payer BC, SELFPAY ==
[2019-01-10 10:16] VITALS: BMI 20.1
[2019-02-02 10:11] VITALS: BMI 20.1
--- NOTE | 2019-02-09 13:18 | BI_ITS ---
MAMMOGRAPHY - BILATERAL SCREENING REASON FOR EXAM: Female, 63 years old. Routine annual screening examination. PERTINENT HISTORY: Non-contributory. Remote left excisional breast biopsy and left stereotactic breast biopsy. TECHNIQUE: Digital bilateral breast beth (3D mammographic acquisition) in the CC and MLO projections. 2-D mediolateral oblique (MLO) and craniocaudad (CC) views of both breasts were obtained. CAD: Full Field Digital Mammography with Computer Added Detection was performed. COMPARISON: Comparison is made with prior study dated February 08, 2018 and January 20, 2017. FINDINGS: Breast Composition: The breasts are heterogeneously dense, which may obscure small masses. There are no dominant masses or suspicious calcifications. No other significant abnormalities are identified. There has been no significant change since the prior study. BI/SCREEN MAMM (CAD) W/BETH BILAT IMPRESSION: Stable bilateral screening mammogram. Yearly follow-up mammogram recommended. (A) ASSESSMENT CATEGORY: BIRADS Category 1: Negative. A letter regarding these results will be sent to the patient by the facility within 30 days. Approximately 10% of breast cancers are not detected by mammography. A normal mammogram should not delay biopsy of a clinically suspicious abnormality. [id number] Electronically Signed: Bill Noe, at 15:14 EST , Service support ,
== END ==
PROVIDERS: Family Provider Family Medicine; PCP Family Medicine; Referring Provider Family Medicine; Visit Provider Family Medicine
DX: Z12.31 Encounter for screening mammogram for malignant neoplasm of breast (principal)
CPT/HCPCS: 77063; 77067

== ENCOUNTER → 2019-06-27 08:42 | Outpatient (CLI) | payer MEDICARE, BC, SELFPAY ==
[2019-06-27 08:15] VITALS: BMI 20.1
--- NOTE | 2019-06-27 08:43 | RAD_ITS ---
STUDY: X-RAY - LEFT HAND REASON FOR EXAM: Left hand pain. TECHNIQUE: 3 view(s) of the hand. COMPARISON: Radiographs 05/31/2015. FINDINGS: There is osteopenia. Normal radiocarpal articulation. Normal distal radioulnar joint. Normal visualized carpal bones. There is interval development of moderate joint space narrowing of the triscaphe articulation. There are marginal osteophytes and joint space narrowing of the carpometacarpal articulation of the thumb, similar to the prior study. Normal second through fifth carpometacarpal joints. Normal metacarpi. Normal metacarpophalangeal joint of the thumb. Normal interphalangeal joint of the thumb. Normal proximal and distal phalanges of the thumb. Normal metacarpophalangeal joints of the second through fifth fingers. There is joint space narrowing of the third and fourth proximal interphalangeal joints and fourth distal interphalangeal joint similar to the prior study. Normal phalanges of the second through fifth fingers. There are small soft tissue calcifications at the radial aspect of the wrist. RAD/Hand Min 3 Views IMPRESSION: Arthrosis of the triscaphe articulation, first carpometacarpal articulation and interphalangeal joints. Electronically Signed: Isaac Mahoney MD at 9:26 EDT Tel , Service support ,
== END ==
PROVIDERS: PCP Family Medicine; Referring Provider Orthopaedic Surgery; Visit Provider Orthopaedic Surgery
DX: M18.9 Osteoarthritis of first carpometacarpal joint, unspecified (principal)
CPT/HCPCS: 73130

== ENCOUNTER → 2019-07-06 09:51 | Outpatient (CLI) | payer MEDICARE, BC, SELFPAY ==
[2019-02-02 10:11] VITALS: BMI 20.1
[2019-06-27 08:15] VITALS: BMI 20.1
--- NOTE | 2019-07-06 09:58 | VDLE_ITS ---
Reason For Study: edema, varicose veins with pain Procedure LEFT Exam performed in department. CFV is compressible, spontaneous, phasic, The exam was abbreviated due to the COVID 19 competent, and demonstrates normal protocol. augmentation. The exam was diagnostic. FV is compressible, spontaneous, phasic, A preliminary report was called and/or faxed competent and demonstrates normal to Dr. Luque. augmentation. POP V is compressible, spontaneous, phasic, competent and demonstrates normal augmentation. T/P Trunk is compressible. PTV is compressible. LT PerV is compressible. SFJ is competent and measures .76 x .88 cm. GSV proximal thigh measures .4 x .42 cm. GSV at knee measures .25 x .3 cm. GSV is competent throughout. SSV proximal calf is competent and measures .3 x .32 cm. Hypoechoic area behind the knee measuring .82 x 1.8 x 3.03 cm. Area is nonvascular. Interpretation Summary Deep veins of the left lower extremity are patent and compressible segmentally. There is no evidence of left lower extremity deep vein thrombosis. Valvular competence appears intact within the proximal deep venous system on the left . The left great saphenous vein appears patent and compressible segmentally. The left sapheno-femoral junction is competent . The left great saphenous vein appears segmentally competent. The left small saphenous vein is patent and competent. A non-vascular, hypoechoic structure is noted in the left popliteal space, measuring 0.82 cm x 1.8 cm x 3.03 cm. This probably represents a popliteal cyst. Clinical correlation is advised. Ordering Physician: Anita Luque Performed By: Edgar Brown, RVT
== END ==
PROVIDERS: PCP Family Medicine; Referring Provider Family Medicine; Visit Provider Family Medicine
DX: M79.605 Pain in left leg (principal); I87.2 Venous insufficiency (chronic) (peripheral); I83.892 Varicose veins of left lower extremity with other complications; R60.0 Localized edema
CPT/HCPCS: 93971

== ENCOUNTER → 2019-08-07 10:35 | Outpatient (CLI) | payer MEDICARE, BC, SELFPAY ==
[2019-08-07 10:30] VITALS: BMI 20.1
--- NOTE | 2019-08-07 10:36 | RAD_ITS ---
STUDY: X-RAY - LEFT KNEE REASON FOR EXAM: Female, 64 years old. PAIN X1 MONTH, NKI TECHNIQUE: 4 view(s) of the knee. COMPARISON: Comparison is made with prior study of September 09, 2018. FINDINGS: Normal visualized distal femur. Normal visualized proximal tibia and fibula. Normal proximal tibiofibular articulation. There is moderate degenerative arthrosis of the medial femorotibial compartment with moderate joint space narrowing. Normal lateral femorotibial compartment. Normal patellofemoral articulation. Minimal joint effusion. RAD/Knee 4 or More Views IMPRESSION: Degenerative arthrosis. Electronically Signed: Bill Noe, at 12:45 EDT , Service support ,
== END ==
PROVIDERS: PCP Family Medicine; Referring Provider Physician Assistant; Visit Provider Physician Assistant
DX: M17.12 Unilateral primary osteoarthritis, left knee (principal)
CPT/HCPCS: 73564

== ENCOUNTER → 2020-01-04 08:44 | Outpatient (CLI) | payer MEDICARE, BC, SELFPAY ==
[2019-11-08 12:17] VITALS: BMI 20.1
[2020-01-04 10:12] LABS: Absolute Lymphocyte Count 1.26 X10^3/uL (0.83-4.51); Absolute Neutrophil Count 3.3 X10^3/uL (2.0-7.7); Basophil# 0.02 X10^3/uL; Basophil% 0.4 % (0-1); Eosinophil# 0.11 X10^3/uL; Eosinophils% 2.2 % (0-5); Hematocrit 46.1 % (37-47); Hemoglobin 14.7 g/dL (12.0-15.0); Lymphocyte # 1.26 X10^3/ul (4.0); Lymphocyte % 24.9 % (19-41); Mean Corp Hgb Conc 31.9 g/dL (32-36); Mean Corpuscular Hgb 32.4 pg (27.0-32.0); Mean Corpuscular Volume 101.5 fL (81-99); Mean Platelet Vol. 10.1 fl (6.2-12.0); Monocyte# 0.41 X10^3/uL; Monocyte% 8.1 % (0-10); NRBC Flagged by Analyzer 0 % (0-5); Neutrophil # 3.25 X10^3/uL (2.7-7.7); Neutrophil % 64.2 % (47-70); Platelet Count 309 K/mm3 (150-450); RBC Distribution Width CV 12.3 % (11.6-14.6); RBC Distribution Width SD 45.6 fl (35.1-43.9); Red Blood Count 4.54 M/mm3 (4.2-5.4); White Blood Count 5.1 K/mm3 (4.4-11.0)
[2020-01-04 10:50] LABS: Vitamin B12 814 pg/mL (211-911)
[2020-01-04 10:58] LABS: AST(SGOT) 23 U/L (15-37); Alanine Aminotransfer ALT/SGPT 30 U/L (13-56); Albumin, Serum 3.8 g/dL (3.2-5.0); Alkaline Phosphatase 78 U/L (45-117); Anion Gap 5 (5-15); BUN 22 mg/dL (7-18); BUN/Creat Ratio 23.2 RATIO (10-20); Calcium,Total 9.5 mg/dL (8.5-10.1); Chloride 103 mmol/L (98-107); Cholesterol 201 mg/dL (200); Creatinine, Serum 0.95 mg/dL (0.55-1.02); EST Glomerular Filtration Rate 63 mL/min (>60); Est Glom Filt Rate - Afr Amer 76 mL/min (>60); Globulin 3.8 g/dL (2.2-4.2); Glucose 85 mg/dL (74-106); High Density Lipoprotein 109 mg/dL; Potassium 3.8 mmol/L (3.5-5.1); Protein, Total 7.6 g/dL (6.4-8.2); Sodium Level 139 mmol/L (136-145); Triglycerides 64 mg/dL; Very Low Density Lipoprotein 13 mg/dL (5-40)
== END ==
PROVIDERS: PCP Family Medicine; Referring Provider Family Medicine; Visit Provider Family Medicine
DX: I10 Essential (primary) hypertension (principal); E78.5 Hyperlipidemia, unspecified; Z51.81 Encounter for therapeutic drug level monitoring; R53.83 Other fatigue
CPT/HCPCS: 36415; 80053; 80061; 82607; 85025

== ENCOUNTER → 2020-02-22 07:41 | Outpatient (CLI) | payer MEDICARE, BC, SELFPAY ==
[2019-11-08 12:17] VITALS: BMI 20.1
--- NOTE | 2020-02-22 07:53 | BI_ITS ---
MAMMOGRAPHY - BILATERAL SCREENING REASON FOR EXAM: Female, 64 years old. Routine annual screening examination. PERTINENT HISTORY: Sister with breast cancer. Remote left excisional breast biopsy and left stereotactic breast biopsy. TECHNIQUE: Digital bilateral breast beth (3D mammographic acquisition) in the CC and MLO projections. 2-D mediolateral oblique (MLO) and craniocaudad (CC) views of both breasts were obtained. CAD: Full Field Digital Mammography with Computer Added Detection was performed. COMPARISON: Comparison is made with prior study dated 02/09/2019 and 02/08/2018. FINDINGS: Breast Composition: The breasts are heterogeneously dense, which may obscure small masses. There are no dominant masses or suspicious calcifications. Stable benign appearing bilateral axillary lymph nodes. No other significant abnormalities are identified. There has been no significant change since the prior study. BI/SCREEN MAMM (CAD) W/BETH BILAT IMPRESSION: Stable bilateral screening mammogram. Yearly follow-up mammogram recommended. (A) ASSESSMENT CATEGORY: BIRADS Category 2: Benign. A letter regarding these results will be sent to the patient by the facility within 30 days. Approximately 10% of breast cancers are not detected by mammography. A normal mammogram should not delay biopsy of a clinically suspicious abnormality. [id number] Electronically Signed: Bill Noe, at 10:21 EST , Service support ,
== END ==
PROVIDERS: PCP Family Medicine; Referring Provider Family Medicine; Visit Provider Family Medicine
DX: Z12.31 Encounter for screening mammogram for malignant neoplasm of breast (principal); Z80.3 Family history of malignant neoplasm of breast
CPT/HCPCS: 77063; 77067

== ENCOUNTER → 2020-03-04 06:34 | Outpatient (CLI) | payer MEDICARE, BC, SELFPAY ==
[2019-11-08 12:17] VITALS: BMI 20.1
--- NOTE | 2020-03-04 06:37 | MRI_ITS ---
STUDY: MRI CERVICAL SPINE WITHOUT CONTRAST REASON FOR EXAM: Female, 64 years old. Neck pain, no trauma TECHNIQUE: Standardized fat and water weighted pulse sequences were obtained in the sagittal and axial planes. COMPARISON: Cervical spine radiographs 02/28/2020. FINDINGS: Normal foramen magnum and brainstem-cervical cord junction. Normal craniovertebral junction. Normal anterior atlantoaxial articulation. Normal odontoid process. Normal cervical lordosis. Normal vertebral bodies and posterior osseous elements. C2-3: Normal endplates. Normal disc height, signal and morphology. Normal central canal and intervertebral neural foramina. C3-4: Normal endplates. Normal disc height, signal and morphology. Normal central canal and intervertebral neural foramina. C4-5: Normal endplates. Normal disc height, signal and morphology. Normal central canal and intervertebral neural foramina. C5-6: Normal endplates. Mild disc space height narrowing. Small osteophytic spur in the right uncovertebral joint causing mild stenosis of the right intervertebral neural foramen. Normal central canal and left intervertebral neural foramen. C6-7: Normal endplates. Normal disc height. Small posterior bulging disc. Normal central canal and intervertebral neural foramina. C7-T1: Normal endplates. Normal disc height, signal and morphology. Normal central canal and intervertebral neural foramina. T1-T2, T2-T3, T3-T4 and T4-T5: (Sagittal only). Normal endplates. Normal disc height, signal and morphology. Normal central canal and intervertebral neural foramina. Normal cervical cord. Normal included upper thoracic spinal cord. Normal visualized soft tissue structures. MRI/Spine Cervical (Routine) IMPRESSION: 1. No MRI evidence of cervical extruded disc fragment. 2. Mild stenosis of the right C5-C6 intervertebral neural foramen due to osteophytic spur arising from the right uncovertebral joint and mild C5-C6 disc space height narrowing. 3. Small C6-C7 posterior annular bulging disc. 4. Normal cervical spinal cord and the included upper thoracic spinal cord. Electronically Signed: Gregg Cueto MD at 8:27 EST , Service support ,
== END ==
PROVIDERS: PCP Family Medicine; Referring Provider Orthopaedic Surgery; Visit Provider Orthopaedic Surgery
DX: M54.2 Cervicalgia (principal); R51.9 Headache, unspecified
CPT/HCPCS: 72141

== ENCOUNTER → 2020-04-09 16:50 | Outpatient (CLI) | payer MEDICARE, BC, SELFPAY ==
[2019-11-08 12:17] VITALS: BMI 20.1
--- NOTE | 2020-04-09 16:53 | MRI_ITS ---
HISTORY: leg pain, weakness COMPARISON: None. TECHNIQUE: Multisequence multiplanar MR imaging of the lumbar spine was performed per department protocol without IV gadolinium. # of images incl. paperwork: [phone] FINDINGS: VERTEBRA: Mild retrolisthesis of L5 on S1 measuring up to 3 mm. Grade 1 spondylolisthesis L4 upon L5, this anterolisthesis measures 3 mm. Mild dextroscoliosis centered at L3. No acute fracture or subluxation. Lumbar vertebral bodies are normal in height. Moderate anterior marginal osteophytes at L5 and S1. No other significant areas of osteophytosis. Mild discogenic endplate marrow changes at L5-S1. No focal marrow signal abnormality to suggest a pathologic process. CONUS: The conus is identified opposite the L1 level and is normal in morphology and signal characteristics. DISCS: Moderate disc space narrowing L5-S1 with vacuum phenomenon. Mild disc space narrowing L4-L5. Severe disc desiccation at L5-S1 and mild disc desiccation remaining levels of lumbar spine. LEVELS: T12-L1: No disc bulge or disc protrusion. No canal or neural foraminal stenosis. L1-2: No disc bulge or disc protrusion. No canal or neural foraminal stenosis. L2-3: Mild disc bulge with less than 1 mm effacing the ventral thecal sac. No superimposed disc protrusion. No canal or foraminal stenosis. L3-4: There is a 2 mm broad-based disc protrusion which combines with mild facet joint arthropathy and ligamentum flavum redundancy results in mild canal stenosis. No foraminal stenosis. L4-5: Combination of mild anterolisthesis, superimposed 4 mm broad-based disc protrusion and severe hypertrophic changes of the facet joints with ligamentum flavum redundancy results in severe canal stenosis and moderate left foraminal stenosis. No right foraminal stenosis. L5-S1: Retrolisthesis combined with asymmetric to the right 3-4 mm broad-based disc protrusion and mild bilateral facet joint arthropathy results in severe right foraminal stenosis. No left foraminal stenosis or canal stenosis. SOFT TISSUES: Paravertebral soft tissues show no gross signal abnormalities. MRI/Spine Lumbar (Routine) IMPRESSION: 1. Severe canal stenosis and moderate left foraminal stenosis L4-L5. 2. Severe right foraminal stenosis L5-S1. 3. Mild canal stenosis L3-L4. at 0308 Reported and signed by: Javier Nolan MD Electronically Signed: Javier Nolan MD at 3:07 EST Tel , Service support ,
== END ==
PROVIDERS: PCP Family Medicine; Referring Provider Family Medicine; Visit Provider Family Medicine
DX: M54.16 Radiculopathy, lumbar region (principal); R29.898 Other symptoms and signs involving the musculoskeletal system
CPT/HCPCS: 72148

== ENCOUNTER → 2020-06-27 13:57 | Outpatient (CLI) | payer MEDICARE, BC, SELFPAY ==
[2019-11-08 12:17] VITALS: BMI 20.1
--- NOTE | 2020-06-27 14:01 | BD_ITS ---
STUDY: DUAL ENERGY X-RAY ABSORPTIOMETRY / DXA REASON FOR EXAM: Female, 64 years old. [id number]. The patient is postmenopausal. Loss of height. TECHNIQUE: Bone Mineral Density (BMD) measurements of lumbar spine and bilateral hips were obtained. COMPARISON: Comparison is made with prior study dated 08/30/2012. FINDINGS: Lumbar Spine (L1-L4): g/cm2 (0.670) / T-score (-4.1) / Z-score (-2.5) Findings are suggestive of osteoporosis with a high fracture risk. Left Femur Total: g/cm2 (0.556) / T-score (-3.6) / Z-score (-2.3) Left Femoral Neck: g/cm2 (0.605) / T-score (-3.1) / Z-score (-1.6) Right Femur Total: g/cm2 (0.551) / T-score (-3.6) / Z-score (-2.4) Right Femoral Neck: g/cm2 (0.616) / T-score (-3.0) / Z-score (-1.5) The T-Scores on the most recent prior examination were: Lumbar Spine (L1-L4): There has been worsening of bone density since the previous examination. Left Femur Total: which represents a worsening of 21.2%. Right Femur Total: which represents a worsening of 23.2%. BD/Dexa Bone Density Study IMPRESSION: The patient is considered osteoporotic as outlined below according to World [employer] Organization (WHO) criteria with a high fracture risk. There has been worsening of bone density since the previous examination. Reference Information: The T-score is the number of standard deviations above or below the standard which is normal for young adults at their peak bone mineral density. The World Health Organization (WHO) interprets the T-scores as follows: Above -1 Normal bone density Between -1 and -2.5 Osteopenia Equal to / or below -2.5 Osteoporosis As a practical clinical guideline, osteopenia may be graded as follows: Mild -1 through -1.5 Moderate -1.6 through -2.0 Severe -2.1 through -2.4 The Z-score is the number of standard deviations above or below age-matched controls. A Z-score of less than -1.5 would be considered abnormal. References: 1. NIH Osteoporosis and Related Bone Diseases www osteo.org 2. International Society for Clinical Densitometry www iscd.org 3. National Osteoporosis Foundation www nof.org Electronically Signed: Bill Noe MD at 13:48 EDT , Service support ,
== END ==
PROVIDERS: PCP Family Medicine; Referring Provider Family Medicine; Visit Provider Family Medicine
DX: M85.80 Other specified disorders of bone density and structure, unspecified site (principal); Z78.0 Asymptomatic menopausal state
CPT/HCPCS: 77080

== ENCOUNTER 2020-09-03 12:00 | Outpatient (RCR) | payer MEDICARE, BC, SELFPAY ==
--- NOTE | 2020-06-12 10:19 | HP.PTEVAL_ITS ---
Patient's Visit Information LATONYA LAW is a 64 year old F referred to Physical Therapy by Dr. Patricia Schroeder MD with a diagnosis of Back pain and leg weakness. Date of Evaluation: 06/12/20 Physical Therapist: MATHEW Jacques - Visit Plan Frequency: 2x /Week Duration: 2 Months Plan: Pt is VERY AFRAID to get her back flared up again so she would like to start of SLOW in the water. 2X/ week for 4 weeks for AT for Neutral spine core stability, LE strengthening ( hip ), general mobility, functional activities, stretching, with HEP. Pt - Subjective Pt has severe lumbar stenosis. She did get an epidural yesterday. She can actually move today but not sure if it is because of the injection. 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 She has a consult with Dr Hood again for her back. Back pain today is 4/10. Her legs get tired walking around and weak. She does better with walking with a cart in the store and L pillow also seems to help. She does not do any exercises outside of here. She does take Ambien when needed and does sleep better. She is painful at night. A pillow between knees also helps. She has not had a bone density yet but should get one scheduled. - Pain Back pain Pain Intensity (Out of 10): 4 - Objective Gait: Walks with a guarded gait pattern with normal stride and decreased trunk rotation. Trunk AROM: flex 75%, Ext 50%, SB B 75%, Rot 50% B. Slump: -B ( increase HS tightness B). SLR test: -B ( increase HS tightness B). LE MMT: B hip flex 3+/5, B knee ext 4/5, B knee flex 4/5, B hip abd 3+/5, B hip ext 3-/5. Patella DTR's: R 1+/3, L 2+/3. Tight B Quads. - Goals Goal 1:: I HEP Goal Time Frame: 4-6 Weeks Goal 2:: Be able to lift her L leg to get dressed with 50% less pain Goal Time Frame: 8-12 Weeks Goal 3:: Be able to get in and out of the car with 50% less pain. Goal Time Frame: 8-12 Weeks Goal 4:: Increase LE strength by 1/2 muscle grade (at time of eval: B hip flex 3+/5, B knee ext 4/5, B knee flex 4/5, B hip abd 3+/5, B hip ext 3-/5). Goal Time Frame: 8-12 Weeks - Rehabilitation Potential Rehabilitation Potential: Good - Anticipated Interventions Patient/Client Instruction: Educate patient on: Condition, Plan of Care For the Purpose of:: To decrease pain, To increase ROM, To improve nutrient delivery to tissue, To improve muscle performance and motor function, To improve ability to perform ADL's, To increase tolerance to activity/condition/position, To improve performance and independence with ADL's, To decrease level of supervision to perform tasks, To improve ability of physical actions for h ome/community/work/leisure, To improve gait and locomotor functions, To improve health of tissue, To increase flexibility/ROM Therapeutic Exercise to Include: Strength training, Body mechanics, Postural training, Flexibilty training, Gait and locomotor training, Neuromotor development, In an aquatic setting, Passive ROM, Active ROM, Dynamic Lumbar Stabilization For the Purpose of:: To decrease pain, To increase ROM, To improve nutrient delivery to tissue, To improve muscle performance and motor function, To improve ability to perform ADL's, To increase tolerance to activity/condition/position, To improve performance and independence with ADL's, To decrease level of supervision to perform tasks, To improve ability of physical actions for h ome/community/work/leisure, To improve gait and locomotor functions, To improve health of tissue, To decrease soft tissue restriction, To increase flexibility/ROM, To improve endurance, To improve balance, To improve safety with gait Functional Training to Include: Gait training For the Purpose of:: To improve gait and locomotor functions, To improve safety with gait Thank you for the opportunity to evaluate your patient. For Medicare and Medicare HMO plans, please review the plan of care and approve it. It will need to be FAXED BACK to us at [phone] for Medicare purposes. For Medicare only, by signing this I certify the plan of care. Please let me know if there are questions or concerns regarding this plan of care. Physician Signature: Date:
--- NOTE | 2020-09-03 13:03 | HP.PTDCSUM ---
It has been my pleasure to treat LATONYA LAW referred by Dr. Patricia Schroeder MD, with the diagnosis of Back pain and leg weakness for a total of 12 visit(s). Discharge Date: 09/03/20 Please see the following information for a summary of their discharge status. Subjective: Pt reports that she is no worse and feels she is a little better. She was not allowed to do her execises for a week after cataract surgery but started them up on Wednesday. Sometimes if she is ouchy she will talke Tylenol Arthritis. Her exercises are 1X/ day. If she has a really busy day then she is sore the next day. Back pain Pain Intensity (Out of 10): 4 RLE Pain Intensity (Out of 10): 0 B hips Pain Intensity (Out of 10): 0 LLE Pain Intensity (Out of 10): 0 % Improvement: 50 Objective/Function: Pt did well with adding green t-band to HEP with supine hip abd and mid rows. Goal 1:: I HEP Goal Progress: Goal Met Goal 2:: Be able to lift her L leg to get dressed with 50% less pain Goal Progress: Goal Met Goal 3:: Be able to get in and out of the car with 50% less pain. Goal Progress: Goal Met Goal 4:: Increase LE strength by 1/2 muscle grade (at time of eval: B hip flex 3+/5, B knee ext 4/5, B knee flex 4/5, B hip abd 3+/5, B hip ext 3-/5). Goal Progress: Goal Met Plan: Review above HEP and add progression of exercises in 4 weeks as pt is having eye surgery in 3 weeks. HEP: PT in supine 10 sec 2 X 10. Supine Ball Squeeze 2 X 10. Supine ball Squeeze with PT 1 X 10. Supine PT with hip abd (more of isometric) with orange T-band. Supine bent leg fall out 1 X 10 B with PT. Standing mid rows orange 3 X 10 with PT. Changed seated trunk flexion to having more hip abd and ER of the hips when bending fw... pt demonstrates less hip adductor pain with this change. Discharge Comments: DC PT to HEP If there are questions or concerns regarding this patient's physical therapy, please feel free to call me at [phone]. Thank you for the referral of this patient. Sincerely, Yessi Perez, MPT
== END 2020-09-03 13:24 | disposition home or self-care (01) ==
LOC: PT 12:00
PROVIDERS: PCP Family Medicine; Referring Provider Anesthesiology Pain Medicine; Visit Provider Anesthesiology Pain Medicine
DX: M54.9 Dorsalgia, unspecified (principal); R29.898 Other symptoms and signs involving the musculoskeletal system
CPT/HCPCS: 97110; 97113; 97140; 97161; 97530

== ENCOUNTER 2021-03-07 10:02 | Outpatient (CLI) | payer MEDICARE, BC, SELFPAY ==
--- NOTE | 2021-03-07 10:05 | BI_ITS ---
MAMMOGRAPHY - BILATERAL SCREENING REASON FOR EXAM: Female, 65 years old. Routine annual screening examination. PERTINENT HISTORY: Sister with breast cancer. Prior left excisional and left stereotactic breast biopsies. TECHNIQUE: Digital bilateral breast beth (3D mammographic acquisition) in the CC and MLO projections. 2-D mediolateral oblique (MLO) and craniocaudad (CC) views of both breasts were obtained. CAD: Full Field Digital Mammography with Computer Added Detection was performed. COMPARISON: Comparison is made with prior examination dated 02/22/2020 and 02/09/2019. FINDINGS: Breast Composition: The breasts are extremely dense, which lowers the sensitivity of mammography. There are no dominant masses or suspicious calcifications. No other significant abnormalities are identified. There has been no significant change since the prior study. BI/SCRN MAMM (CAD)W/BETH BILAT IMPRESSION: Stable bilateral screening mammogram. Yearly follow-up mammogram recommended. (A) ASSESSMENT CATEGORY: BIRADS Category 1: Negative. A letter regarding these results will be sent to the patient by the facility within 30 days. Approximately 10% of breast cancers are not detected by mammography. A normal mammogram should not delay biopsy of a clinically suspicious abnormality. [id number] Electronically Signed: Bill Noe MD at 11:16 EST , Service support ,
== END 2021-03-07 23:59 | disposition short-term general hospital (02) ==
LOC: OPBI 10:03
PROVIDERS: PCP Family Medicine; Referring Provider Family Medicine; Visit Provider Family Medicine
DX: Z12.31 Encounter for screening mammogram for malignant neoplasm of breast (principal)
CPT/HCPCS: 77063; 77067

== ENCOUNTER → 2021-09-01 | Outpatient (CLI) | payer MEDICARE, BC, SELFPAY ==
--- NOTE | 2021-09-01 09:51 | RAD_ITS ---
HISTORY: BILAT HIP PAIN. TECHNIQUE: XR Hips Bilateral with Pelvis when performed; Min 5 Views. COMPARISON: None. FINDINGS: OSSEOUS STRUCTURES: No acute displaced fracture identified. Note that overlapping bowel shadows may obscure osseous detail. Mineralization unremarkable. JOINT SPACES: No dislocation. Mild degenerative changes of the hips. SOFT TISSUES: Unremarkable. . RAD/HIP, UNI W/ Pelvis 2-3 Views IMPRESSION: No acute displaced fracture or dislocation identified. Mild bilateral hip osteoarthritis. Electronically Signed: eMr Mahajan MD at 16:49 EDT ,
== END | disposition home or self-care (01) ==
LOC: RAD 09:48
PROVIDERS: PCP Family Medicine; Referring Provider Anesthesiology Pain Medicine; Visit Provider Anesthesiology Pain Medicine
DX: M25.551 Pain in right hip (principal); M25.552 Pain in left hip
CPT/HCPCS: 73502

== ENCOUNTER → 2021-09-02 | Outpatient (CLI) | payer MEDICARE, BC, SELFPAY ==
[2021-09-02 10:28] LABS: Absolute Lymphocyte Count 1.43 X10^3/uL (0.83-4.51); Absolute Neutrophil Count 4.2 X10^3/uL (2.0-7.7); Basophil# 0.03 X10^3/uL; Basophil% 0.5 % (0-1); Eosinophil# 0.13 X10^3/uL; Eosinophils% 2.1 % (0-5); Hematocrit 44.1 % (37-47); Hemoglobin 15.2 g/dL (12.0-15.0); Lymphocyte # 1.43 X10^3/ul (0.83-4.51); Lymphocyte % 22.9 % (19-41); Mean Corp Hgb Conc 34.5 g/dL (32-36); Mean Corpuscular Hgb 34.9 pg (27.0-32.0); Mean Corpuscular Volume 101.4 fL (81-99); Monocyte# 0.44 X10^3/uL; NRBC Flagged by Analyzer 0 % (0-5); Neutrophil % 67.2 % (47-70); Platelet Count 349 K/mm3 (150-450); RBC Distribution Width CV 12.8 % (11.6-14.6); Red Blood Count 4.35 M/mm3 (4.2-5.4); White Blood Count 6.3 K/mm3 (4.4-11.0)
[2021-09-02 10:51] LABS: ALB/GLOB Ratio 0.9 RATIO (0.9-2.4); AST(SGOT) 24 U/L (15-37); Alanine Aminotransfer ALT/SGPT 32 U/L (13-56); Albumin, Serum 3.6 g/dL (3.2-5.0); Alkaline Phosphatase 76 U/L (45-117); Anion Gap 5 (5-15); BUN 18 mg/dL (7-18); BUN/Creat Ratio 20.5 RATIO (10-20); Calcium,Total 9.1 mg/dL (8.5-10.1); Chloride 104 mmol/L (98-107); Cholesterol 205 mg/dL (200); Creatinine, Serum 0.88 mg/dL (0.55-1.02); EST Glomerular Filtration Rate 68 mL/min (>60); Est Glom Filt Rate - Afr Amer 82 mL/min (>60); Globulin 4.2 g/dL (2.2-4.2); Glucose 101 mg/dL (74-106); High Density Lipoprotein 115 mg/dL; Potassium 4.1 mmol/L (3.5-5.1); Protein, Total 7.8 g/dL (6.4-8.2); Sodium Level 138 mmol/L (136-145); Triglycerides 65 mg/dL; Very Low Density Lipoprotein 13 mg/dL (5-40)
== END | disposition home or self-care (01) ==
LOC: MTLAB 08:27
PROVIDERS: PCP Family Medicine; Referring Provider Family Medicine; Visit Provider Family Medicine
DX: Z51.81 Encounter for therapeutic drug level monitoring (principal); E78.5 Hyperlipidemia, unspecified
CPT/HCPCS: 36415; 80053; 80061; 85025

== ENCOUNTER 2021-10-22 12:50 | Emergency (ER) | payer MEDICARE, BC, SELFPAY ==
[2021-10-22 12:51] VITALS: BP 171/119; PULSE 114; RESP 16; TEMP 36.6; O2SAT 98; BMI 19.1
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
[2021-10-22] MEDS: Lidocaine 1% (20 ml mdv) 20 ML Vial INFILT (15:21)
== END 2021-10-22 15:24 | disposition home or self-care (01) ==
PROVIDERS: Emergency Provider Emergency Medicine; PCP Family Medicine; Visit Provider Emergency Medicine
DX: S81.819A Laceration without foreign body, unspecified lower leg, initial encounter (principal); S80.12XA Contusion of left lower leg, initial encounter; V19.3XXA Pedal cyclist (driver) (passenger) injured in unspecified nontraffic accident, initial encounter; Z87.891 Personal history of nicotine dependence; I10 Essential (primary) hypertension
CPT/HCPCS: 12001; 99283

== ENCOUNTER → 2022-03-20 | Outpatient (CLI) | payer MEDICARE, BC, SELFPAY ==
--- NOTE | 2022-03-20 13:42 | BI_ITS ---
MAMMOGRAPHY - BILATERAL SCREENING REASON FOR EXAM: Female, 66 years old. Routine annual screening examination. PERTINENT HISTORY: Sister with breast cancer. Remote left excisional breast biopsy and left stereotactic breast biopsy. TECHNIQUE: Digital bilateral breast beth (3D mammographic acquisition) in the CC and MLO projections. 2-D mediolateral oblique (MLO) and craniocaudad (CC) views of both breasts were obtained. CAD: Full Field Digital Mammography with Computer Added Detection was performed. COMPARISON: Comparison is made with prior study dated 09/04/2021 and 02/22/2020. FINDINGS: Breast Composition: The breasts are extremely dense, which lowers the sensitivity of mammography. There are no dominant masses or suspicious calcifications. Stable benign appearing lymph node in the left axilla No other significant abnormalities are identified. There has been no significant change since the prior study. BI/SCRN MAMM (CAD)W/BETH BILAT IMPRESSION: Stable bilateral screening mammogram. Yearly follow-up mammogram recommended. (A) ASSESSMENT CATEGORY: BIRADS Category 2: Benign. A letter regarding these results will be sent to the patient by the facility within 30 days. Approximately 10% of breast cancers are not detected by mammography. A normal mammogram should not delay biopsy of a clinically suspicious abnormality. [id number] Electronically Signed: Bill Noe MD at 15:05 EST ,
== END | disposition home or self-care (01) ==
LOC: OPBI 13:41
PROVIDERS: PCP Family Medicine; Visit Provider Family Medicine
DX: Z12.31 Encounter for screening mammogram for malignant neoplasm of breast (principal); Z92.89 Personal history of other medical treatment; Z80.3 Family history of malignant neoplasm of breast
CPT/HCPCS: 77063; 77067

== ENCOUNTER → 2022-07-08 | Outpatient (CLI) | payer MEDICARE, BC, SELFPAY ==
--- NOTE | 2022-07-08 09:36 | BD_ITS ---
STUDY: DUAL ENERGY X-RAY ABSORPTIOMETRY / DXA REASON FOR EXAM: Female, 67 years old. M810 TECHNIQUE: Bone Mineral Density (BMD) measurements of lumbar spine and bilateral hips were obtained. COMPARISON: Comparison is made with prior study June 27, 2020. FINDINGS: Lumbar Spine (L1-L4): g/cm2 (0.731) / T-score (-2.6) / Z-score (-0.7) Findings are suggestive of osteoporosis with a high fracture risk. Left Femur Total: g/cm2 (0.520) / T-score (-3.5) / Z-score (-2.1) Left Femoral Neck: g/cm2 (0.409) / T-score (-4.0) / Z-score (-2.3) Right Femur Total: g/cm2 (0.538) / T-score (-3.3) / Z-score (-1.9) Right Femoral Neck: g/cm2 (0.494) / T-score (-3.2) / Z-score (-1.5) The T-Scores on the most recent prior examination were: Lumbar Spine (L1-L4): There has been improvement of bone density since the previous examination. Left Femur Total: which represents an improvement of 3.4%. Right Femur Total: which represents an improvement of 8.2%. BD/Dexa Bone Density Study IMPRESSION: The patient is considered osteoporotic as outlined below according to World [employer] Organization (WHO) criteria with a high fracture risk. There has been improvement of bone density since the previous examination. Reference Information: The T-score is the number of standard deviations above or below the standard which is normal for young adults at their peak bone mineral density. The World Health Organization (WHO) interprets the T-scores as follows: Above -1 Normal bone density Between -1 and -2.5 Osteopenia Equal to / or below -2.5 Osteoporosis As a practical clinical guideline, osteopenia may be graded as follows: Mild -1 through -1.5 Moderate -1.6 through -2.0 Severe -2.1 through -2.4 The Z-score is the number of standard deviations above or below age-matched controls. A Z-score of less than -1.5 would be considered abnormal. References: 1. NIH Osteoporosis and Related Bone Diseases www osteo.org 2. International Society for Clinical Densitometry www iscd.org 3. National Osteoporosis Foundation www nof.org Electronically Signed: Bill Noe MD at 9:38 EDT ,
== END | disposition home or self-care (01) ==
LOC: OPBD 09:28
PROVIDERS: PCP Family Medicine; Referring Provider Family Medicine; Visit Provider Family Medicine
DX: M81.0 Age-related osteoporosis without current pathological fracture (principal)
CPT/HCPCS: 77080

== ENCOUNTER → 2023-03-23 | Outpatient (CLI) | payer MEDICARE, BC, SELFPAY ==
--- NOTE | 2023-03-23 09:13 | BI_ITS ---
MAMMOGRAPHY - BILATERAL SCREENING REASON FOR EXAM: Female, 67 years old. Routine annual screening examination. PERTINENT HISTORY: Sister with breast cancer. Prior left excisional and left stereotactic breast biopsies. TECHNIQUE: Digital bilateral breast beth (3D mammographic acquisition) in the CC and MLO projections. 2-D mediolateral oblique (MLO) and craniocaudad (CC) views of both breasts were obtained. CAD: Full Field Digital Mammography with Computer Added Detection was performed. COMPARISON: Comparison is made with prior study dated September 17, 2022 and March 07, 2021. FINDINGS: Breast Composition: The breasts are extremely dense, which lowers the sensitivity of mammography. There are no dominant masses or suspicious calcifications. No other significant abnormalities are identified. There has been no significant change since the prior study. BI/SCRN MAMM (CAD)W/BETH BILAT IMPRESSION: Stable bilateral screening mammogram. Yearly follow-up mammogram recommended. (A) ASSESSMENT CATEGORY: BIRADS Category 1: Negative. A letter regarding these results will be sent to the patient by the facility within 30 days. Approximately 10% of breast cancers are not detected by mammography. A normal mammogram should not delay biopsy of a clinically suspicious abnormality. [id number] Electronically Signed: Bill Noe MD at 13:50 EST ,
--- OUTSIDE RECORDS SUMMARY | 2023-03-23 09:37 | XMS RPT_ITS | CCD ---
Author Name Unknown Address [facility] [place] [address] Organization [facility] Care Team Providers Care [employer] Name Role Phone Alex Espinoza Primary Care Provider Unavailabl e Allergies Allergy Classification Reported Allergen(s) Allergy Type Date of Onset Reaction(s) Facility (1 source) Codeine Drug Allergy 01-21-2005 Intolerance [facility] Medications Completed/Discontinued Medications Medication Drug Class(es) Dates Sig (Normalized) Sig (Original) atenolol 25 mg oral tablet (1 source) beta-Adrenergic Jer Start: 01-21-2005 ATENOLOL 25 MG TAB Take one(1) tablet daily. 0 01/21/2005 Active Problems Active Problems Problem Classification Problem Date Documented Da te Episodic/Chronic Gout and other crystal arthropathies (1 source) Calcium pyrophosphate deposition disease; Translations: [Other chondrocalcinosis, unspecified site] Chronic Other non-traumatic joint disorders (1 source) Pain in left knee; Translations: [Pain in joint, lower leg] Episodic Past or Other Problems Problem Classification Problem Date Documented Da te Episodic/Chronic Allergic reactions (1 source) Radiation-induced dermatosis; Translations: [Other skin changes due to chronic exposure to nonionizing radiation] Onset: 05-22-2005 05-22-2005 Episodic Neoplasms of unspecified nature or uncertain behavior (1 source) Neoplasm of uncertain behavior of skin; Translations: [Neoplasm of uncertain behavior of skin] Onset: 11-13-2005 11-13-2005 Episodic Other non-epithelial cancer of skin (1 source) History of malignant neoplasm of skin; Translations: [Personal history of other malignant neoplasm of skin] Onset: 05-22-2005 05-22-2005 Episodic Other skin disorders (1 source) Actinic keratosis; Translations: [Actinic keratosis] Onset: 05-22-2005 05-22-2005 Episodic Other skin disorders (1 source) Keloid scar; Translations: [Hypertrophic scar] Onset: 05-22-2005 05-22-2005 Episodic Other skin disorders (1 source) Scar conditions and fibrosis of skin; Translations: [Scar conditions and fibrosis of skin] Onset: 11-13-2005 11-13-2005 Episodic Other skin disorders (1 source) Disorder of skin pigmentation; Translations: [Disorder of pigmentation, unspecified] Onset: 11-13-2005 11-13-2005 Episodic Results Test Name Value Interpretation Reference Range Facil ity Encounters Encounter Date Encounter Type Care Provider Facility Start: 05-16-2021 End: 05-16-2021 Patient encounter procedure Chelsea Robbins DO Work Phone: Orthopaedics Procedures Date Procedure Procedure Detail Performing Clinician Start: 05-16-2021 Arthrocentesis aspir &/inj major jt/bursa w/o us Chelsea Robbins DO Work Phone: Start: 05-16-2021 Cell count misc body fluids w/differential count Chelsea Robbins DO Work Phone: Plan of Treatment Date Care Activity Detail Author Start: 02-22-2021 ADVANCE DIRECTIVE DISCUSSION ADVANCE DIRECTIVE DISCUSSION [facility] Start: 06-30-2019 BONE DENSITY BONE DENSITY [facility] Start: 06-30-2019 PNEUMOVAX AGE 65 AND OVER WITH 5YR LOOKBACK (#1) PNEUMOVAX AGE 65 AND OVER WITH 5YR LOOKBACK (#1) [facility] Start: 2004 SHINGRIX VACCINE (1 of 2) SHINGRIX VACCINE (1 of 2) [facility] Start: 06-30-1999 COLOGUARD (FIT-DNA) COLOGUARD (FIT-DNA) [facility] Start: 06-30-1999 Colonoscopy COLONOSCOPY [facility] Start: 06-30-1999 COLORECTAL CANCER SCREENING COLORECTAL CANCER SCREENING [facility] Start: 06-30-[address] COLONOGRAPHY [facility] Start: 06-30-1999 DIABETES SCREEN DIABETES SCREEN [facility] Start: 06-30-1999 FECAL OCCULT BLOOD FECAL OCCULT BLOOD [facility] Start: 06-30-1999 LIPID SCREEN LIPID SCREEN [facility] Start: 06-30-1999 SIGMOIDOSCOPY SIGMOIDOSCOPY [facility] Start: 1994 Mammography MAMMOGRAM [facility] Start: 1973 Urine microalbumin profile DTAP,TDAP,TD (1 - Tdap) [facility] Start: 1972 HEPATITIS C SCREENING HEPATITIS C SCREENING [facility] Start: 1966 Adult depression screening assessment DEPRESSION SCREENING [facility] CYTOLOGY NON-DIRECTOR OF CATERING SALES CYTOLOGY NON-GY N Lab Routine Chronic pain of left knee 05/16/2021 1:10 PM EDT [facility] Work Phone: SF STAFF REVIEW (LAB ORDER) SF STAFF REVIEW (LAB ORDER) Lab Routine Chronic pain of left knee 05/16/2021 1:10 PM EDT [facility] Work Phone: SYNOVIAL FL,CRYSTAL ID/STAFF REV SYNOVIAL FL,CRYSTAL ID/STAFF REV Lab Routine Chronic pain of left knee 05/16/2021 1:10 PM EDT [facility] Work Phone: SYNOVIAL FLUID MANUA L DIFF SYNOVIAL FLUID MANUAL DIFF Lab Routine Chronic pain of left knee 05/16/2021 1:10 PM EDT [facility] Work Phone: Payers Date Payer Category Payer Medicare MEDICARE MEDICAR E A AND B [id number] 2019-Present [phone] [address] [address] [place] [address] Medicare [id number] 2019 Unknown DAVID HERNANDEZ ME DICARE SUPPLEMENT [id number] 2019-Present [phone] [address] [place] [address] Indemnity [id number] Social History Date Type Detail [facility] Start: 12-15-2005 Alcohol intake Current drinke r of alcohol (finding) [facility] Start: 1955 Sex Assigned At Not on file [facility] Start: 04-25-2021 End: 05-05-2021 Exposure to SARS-CoV-2 (event) Not sure [facility] Progress note 05-16-2021 Note Date & Type Note Facility 05-16-2021 Note HNO ID: [id number] Author: Chelsea Robbins, DO Service: ? Author Type: Physician Type: Progress Notes Filed: 05/16/2021 7:50 PM Note Text: Large Joint Arthro/Inj: L knee joint Informed Consent [place] Protocol A moment to CARE was completed. SIGN IN Personnel directly involved with the procedure wore the appropriate PPE. Special Equipment: Yes Patient/Surrogate Stated/Verified: Patient name, Date of , Relevant allergies and Intended procedure TIME OUT Intended patient and procedure match the source document(s). Consent documented and matches the intended procedure. Relevant labs, photos, and/or imaging studies have been reviewed. No relevant labs, photos, and/or imaging studies were applicable for review. Correct side/site marked and visible. Medications required for procedure verified. Fire risk assessed and interventions discussed. No implant(s) inserted. 05/16/2021 7:46 PM The procedure site was prepped in the usual sterile fashion. Site: L knee joint Aspirate: 50 mL clear and yellowMedications: 80 mg triamcinolone acetonide 40 mg/mL Anesthetics: 8 mL bupivacaine (PF) 0.5 % (5 mg/mL) Outcome: Tolerated well, no immediate complications Post-injection instructions were reviewed with the patient and the patient voiced understanding of these instructions. SIGN OUT All specimen containers correctly labeled. All instruments, equipment, possible retained foreign bodies accounted for. Post-procedure follow-up management communicated and Plan of Care Visit completed when applicable 50cc fluid Follow Up Visit Chief Complaint Swathi Law is a 65 year old female who presents today for follow up office visit. Patient presents with: Left Knee - Knee Pain, Follow Up, Swelling History of Present Illness PAIN EVALUATION 05/16/2021 1159 Pain Level: 5 Pain Location: Knee-Left Description: Aching;Dull;Pressure;Sore Duration Amount of Time: ? ongoing Frequency: Intermittent Intervention/Comfort measure: Relaxation;Reposition;Cold;Medication Advil HPI: Swathi Law is a 65 year old female for a follow up visit left knee pain/swelling. Pain history is noted as above. Denies calf pain, numbness, tingling, fever, chills or other constitutional symptoms. Is there any overall improvement in your condition? No Any new injury, since being seen last: No REVIEW OF SYMPTOMS: Patient did not have, and does not currently have, any weight loss, malaise, fever, chills, headache, chest pain, chest pressure, palpitations, cough, shortness of breath, orthopnea, paroxsymal nocturnal dyspnea, nausea, vomiting, diarrhea, constipation, melena, hematochezia, urinary difficulties, prolonged bleeding, easily bruising, heat or cold intolerance, new onset joint pain or swelling, new onset extremity weakness or numbness, new onset auditory or visual disturbances, lightheadedness, dizziness, partial loss of consciousness or full loss of consciousness. Current Outpatient Medications Medication Sig - triamterene-hydroCHLOROthiazide 37.5-25 mg per capsule Take 1 capsule by mouth once daily. - atorvastatin (LIPITOR) 10 mg tablet Take 10 mg by mouth once daily. - zolpidem 1.75 mg subl Dissolve under the tongue as needed. - MINOCYCLINE 100 MG CAP Take one(1)capsule po with food bid as tolerated - ATENOLOL 25 MG TAB Take one(1) tablet daily. - CARAC 0.5 % TOPICAL CREAM Apply cream to entire actinic-damaged area(s) on face forehead to temples, cheeks, upper lip as directed qd x 30 days (applied in the evenings) - DESOWEN 0.05 % LOTION Apply to severely irritated or rash areas of skin on face qd to bid selectively prn as directed and try to avoid eyes/eyelids as able No current facility-administered medications for this visit. Physical Exam Vitals: There were no vitals taken for this visit. Psych: Pleasant, good affect and mood General Appearance: Well appearing, alert, in no acute distress, well-hydrated, well nourished.. Skin: Skin color, texture, turgor normal, no suspicious rashes or lesions. Peripheral Pulses: Normal. Neurologic: Gait normal. Reflexes normal and symmetric. Sensation grossly intact.. Lymph Nodes: No cervical lymphadenopathy, No supraclavicular lymphadenopathy, No axillary lymphadenopathy. and No inguinal lymphadenopathy.. Respiratory: No recent pulmonary infection, hemoptysis, chronic cough, or shortness of breath at rest Rheumatologic: Joint deformities: Left knee swelling Right Knee Exam Right knee exam is normal. Muscle Strength The patient has normal right knee strength. Tenderness The patient is experiencing no tenderness. Range of Motion Extension: normal Flexion: normal Tests Chelita: Anterior - negative Posterior - negative Drawer: Anterior - negative Posterior - negative Other Erythema: absent Sensation: normal Pulse: present Swelling: none Left Knee Exam Tenderness (more content not included)... [facility] History of Present illness Narrative 05-16-2021 Chelsea Robbins, DO - 05/16/2021 11:58 AM EDT Note Date & Type Note Facility 05-16-2021 History of Presen t illness Narrative Associated Order(s): Large Joint Arthro/Inj: L knee joint Post-Procedure Diagnose(s): Chronic pain of left knee; Pseudogout Images from the original note were not included. Large Joint Arthro/Inj: L knee joint Informed Consent [place] Protocol A moment to CARE was completed. SIGN IN Personnel directly involved with the procedure wore the appropriate PPE. Special Equipment: Yes Patient/Surrogate Stated/Verified: Patient name, Date of , Relevant allergies and Intended procedure TIME OUT Intended patient and procedure match the source document(s). Consent documented and matches the intended procedure. Relevant labs, photos, and/or imaging studies have been reviewed. No relevant labs, photos, and/or imaging studies were applicable for review. Correct side/site marked and visible. Medications required for procedure verified. Fire risk assessed and interventions discussed. No implant(s) inserted. 05/16/2021 7:46 PM The procedure site was prepped in the usual sterile fashion. Site: L knee joint Aspirate: 50 mL clear and yellowMedications: 80 mg triamcinolone acetonide 40 mg/mL Anesthetics: 8 mL bupivacaine (PF) 0.5 % (5 mg/mL) Outcome: Tolerated well, no immediate complications Post-injection instructions were reviewed with the patient and the patient voiced understanding of these instructions. SIGN OUT All specimen containers correctly labeled. All instruments, equipment, possible retained foreign bodies accounted for. Post-procedure follow-up management communicated and Plan of Care Visit completed when applicable 50cc fluid Follow Up Visit Chief Complaint Swathi Law is a 65 year old female who presents today for follow up office visit. Patient presents with: Left Knee - Knee Pain, Follow Up, Swelling History of Present Illness PAIN EVALUATION 05/16/2021 1159 Pain Level: 5 Pain Location: Knee-Left Description: Aching;Dull;Pressure;Sore Duration Amount of Time: ongoing Frequency: Intermittent Intervention/Comfort measure: Relaxation;Reposition;Cold;Medication Advil HPI: Swathi Law is a 65 year old female for a follow up visit left knee pain/swelling. Pain history is noted as above. Denies calf pain, numbness, tingling, fever, chills or other constitutional symptoms. Is there any overall improvement in your condition? No Any new injury, since being seen last: No REVIEW OF SYMPTOMS: Patient did not have, and does not currently have, any weight loss, malaise, fever, chills, headache, chest pain, chest pressure, palpitations, cough, shortness of breath, orthopnea, paroxsymal nocturnal dyspnea, nausea, vomiting, diarrhea, constipation, melena, hematochezia, urinary difficulties, prolonged bleeding, easily bruising, heat or cold intolerance, new onset joint pain or swelling, new onset extremity weakness or numbness, new onset auditory or visual disturbances, lightheadedness, dizziness, partial loss of consciousness or full loss of consciousness. Current Outpatient Medications Medication Sig triamterene-hydroCHLOROthiazide 37.5-25 mg per capsule Take 1 capsule by mouth once daily. atorvastatin (LIPITOR) 10 mg tablet Take 10 mg by mouth once daily. zolpidem 1.75 mg subl Dissolve under the tongue as needed. MINOCYCLINE 100 MG CAP Take one(1)capsule po with food bid as tolerated ATENOLOL 25 MG TAB Take one(1) tablet daily. CARAC 0.5 % TOPICAL CREAM Apply cream to entire actinic-damaged area(s) on face forehead to temples, cheeks, upper lip as directed qd x 30 days (applied in the evenings) DESOWEN 0.05 % LOTION Apply to severely irritated or rash areas of skin on face qd to bid selectively prn as directed and try to avoid eyes/eyelids as able No current facility-administered medications for this visit. Physical Exam Vitals: There were no vitals taken for this visit. Psych: Pleasant, good affect and mood General Appearance: Well appearing, alert, in no acute distress, well-hydrated, well nourished.. Skin: Skin color, texture, turgor normal, no suspicious rashes or lesions. Peripheral Pulses: Normal. Neurologic: Gait normal. Reflexes normal and symmetric. Sensation grossly intact.. Lymph Nodes: No cervical lymphadenopathy, No supraclavicular lymphadenopathy, No axillary lymphadenopathy. and No inguinal lymphadenopathy.. Respiratory: No recent pulmonary infection, hemoptysis, chronic cough, or shortness of breath at rest Rheumatologic: Joint deformities: Left knee swelling Right Knee Exam Right knee exam is normal. Muscle Strength The patient has normal right knee strength. Tenderness The patient is experiencing no tenderness. Range of Motion Extension: normal Flexion: normal Tests Chelita: Anterior - negative Posterior - negative Drawer: Anterior - negative Posterior - negative Other Erythema: absent Sensation: normal Pulse: present Swelling: none Left Knee Exam Tenderness The patient is experiencing tenderness in the medial joint line. Range of Motion Extension: normal Flexion: normal Tests Italia: Medial - positive Chelita: Anterior - negative Posterior - negative Drawer: Anterior - negative Posterior - negative Other Erythema: absent Sensation: normal Pulse: present Swelling: moderate Comments: Neg homans bilaterally Assessment and Plan Radiographs: I have independently reviewed films and my findings are the same. and I have reviewed the images with the patient and family. Impression: Encounter Diagnosis ICD-10-CM 1. 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 Pseudogout M11.20 Discussed options for treatment Anti-inflammatories, brace, injections, arthroscopy, watch and wait, all of the above. Patient is having swelling of the left knee is going on a trip to [place] and elected to proceed with injection today. Discussed with patient possible options for treatment. Patient elected proceed with injection. Patient told not to submerge the injected area for 24 hours in a hot tub, or bath, injection may take 2 weeks for improvement to be noticed, follow-up in 2 -6 weeks if symptoms do not resolve. All questions answered patient agreement of plan. Apply ice Limit activities as discussed Rest Do not submerge limb in water for 24 hours Cont current meds Watch sugars/decrease carbs Call if warm/hot/red Discussed with patient that if the injection does not work after 2 to 4 weeks to come back for reevaluation. Discussed the next 3 days may feel worse before it feels better. Discussed if having continued pain to return. May get injection every 3 months Today, in detail, through a thorough evaluation, we discussed possible etiologies of pain and our plans for further diagnostic and therapeutic interventions. We discussed strategies for decreasing pain and improving strength, stability and motion. Patient's questions were answered in detailed. Patient verbalizes understanding and agrees with the treatment plan as discussed. documented in this encounter [facility] Progress note 09-11-2020 Note Date & Type Note Facility 09-11-2020 Note HNO ID: [id number] Author: Chelsea Robbins DO Service: ? Author Type: Physician Type: Progress Notes Filed: 09/11/2020 10:15 AM Note Text: Reason for Visit/Chief Complaint Swathi Law is a 65 year old female who presents today for a new evaluation of following complaint: Patient presents with: Left Knee - New, Knee Pain History of Present Illness: PAIN EVALUATION 09/11/2020 0919 Pain Level: 5 Pain Location: Knee-Left Description: Aching;Dull;Stiffness;Sore Duration Amount of Time: ? ongoing Frequency: Continuous Intervention/Comfort measure: Medication;Other: See comment;Cold;Relaxation;Heat cortisone injections HPI: Swathi Law is a 65 year old female presenting today with left knee pain. Pain history is noted as above. Tylenol arthritis as taking a lot of nsaids, and rec by gi doc. Previous Treatments: Ice: Yes Heat: No Brace: No NSAIDs: Yes, Injections: Yes, oct 2019 Surgeries: Yes, see chart Physical Therapy: Yes Review of Systems: Patient did not have, and does not currently have, any weight loss, malaise, fever, chills, headache, chest pain, chest pressure, palpitations, cough, shortness of breath, orthopnea, paroxsymal nocturnal dyspnea, nausea, vomiting, diarrhea, constipation, melena, hematochezia, urinary difficulties, prolonged bleeding, easily bruising, heat or cold intolerance, new onset joint pain or swelling, new onset extremity weakness or numbness, new onset auditory or visual disturbances, lightheadedness, dizziness, partial loss of consciousness or full loss of consciousness. Current Outpatient Medications on File Prior to Visit Medication Sig - MINOCYCLINE 100 MG CAP Take one(1)capsule po with food bid as tolerated - ATENOLOL 25 MG TAB Take one(1) tablet daily. - CARAC 0.5 % TOPICAL CREAM Apply cream to entire actinic-damaged area(s) on face forehead to temples, cheeks, upper lip as directed qd x 30 days (applied in the evenings) - DESOWEN 0.05 % LOTION Apply to severely irritated or rash areas of skin on face qd to bid selectively prn as directed and try to avoid eyes/eyelids as able No current facility-administered medications on file prior to visit. ALLERGIES Allergen Reactions - Codeine Intolerance Physical Exam: Vitals: There were no vitals taken for this visit. Psych: Pleasant, good affect and mood General Appearance: Well appearing, alert, in no acute distress, well-hydrated, well nourished.. Skin: Skin color, texture, turgor normal, no suspicious rashes or lesions. Peripheral Pulses: Normal. Neurologic: Gait normal. Reflexes normal and symmetric. Sensation grossly intact.. Lymph Nodes: No cervical lymphadenopathy, No supraclavicular lymphadenopathy, No axillary lymphadenopathy. and No inguinal lymphadenopathy.. Respiratory: No recent pulmonary infection, hemoptysis, chronic cough, or shortness of breath at rest Rheumatologic: Joint deformities: Right Knee Exam Right knee exam is normal. Left Knee Exam Tenderness The patient is experiencing tenderness in the medial joint line. Tests Italia: Medial - positive Other Sensation: normal Pulse: present Swelling: moderate Imaging: Last XR Knee - Impression Only XR KNEE GENERAL 4V AP BOTH/PA BOTH/LAT/MERC LT Exam End: 09/11/2020 9:16 AM (Final result) Impression: IMPRESSION: Osteoarthrosis with joint effusion and medial soft tissue swelling. Kitchen And Bath Designer: ZANDER Transcribe Date/Time: Sep 11 2020 9:23A Dictated by : ALEX SEVERINO MD... Complete Results Assessment and Plan: Impression: Encounter Diagnosis ICD-10-CM 1. Chronic pain of left knee M25.562 Large Joint Arthro/Inj: L knee joint G89.29 SYNOVIAL FLUID ANALYSIS, COMPLETE GRAM STAIN/BODY FLUID CULTURE BODY FLUID CELL COUNT 2. Primary osteoarthritis of left knee M17.12 Plan: Apply ice Prn if need another injection in 3 months, call us, cont exercising, walking Discussed post injeciton flair Large Joint Arthro/Inj: L knee joint The risks, benefits and alternatives of the procedure were reviewed with the patient/surrogate, who agreed to proceed. Sign In Communication: Completed Time Out: Time Out completed The Time-Out verifies the correct patient, procedure, side/site, position (if applicable) and completion and review of fire risk assessment/protocols (if appropriate): Affirmation of Time Out: Yes Signout Discussion: Yes 09/11/2020 9:41 AM The procedure site was prepped in the usual sterile fashion. Allergies were reviewed Site: L knee joint Aspirate: 35 mL clear and yellow Medications: 80 mg triamcinolone acetonide 40 mg/mL Anesthetics: 8 mL bupivacaine (PF) 0.5 % (5 mg/mL) Outcome: Tolerated well, no immediate complications Post-injection instructions were reviewed with the patient and the patient voiced understanding of these instructions. Today, in detail, through a thorough evaluation, we discussed (more content not included)... [facility] Progress note 09-11-2020 Note Date & Type Note Facility 09-11-2020 Note HNO ID: [id number] Author: RT Tristan(Hazel) Service: Radiology Author Type: Proc Tech Type: Progress Notes Filed: 09/11/2020 9:45 AM Note Text: Radiology Service Progress Note PATIENT NAME: Swathi Law DATE OF SERVICE: September 11, 2020 TIME: 9:44 AM PATIENT IDENTITY VERIFICATION COMPLETED USING TWO (2) IDENTIFIERS: Name and Date of confirmed by patient verbally. FALL SCREENING: Has the patient had 2 falls in the last year or 1 fall with injury or currently using an Ambulatory Assistive Device (Walker, Cane, Wheelchair, Crutches, etc.)? No PATIENT GENDER DATA: Female. status: : No status: NO. PATIENT RELEVANT IMPLANT DATA REVIEWED: Not Applicable RADIOLOGY DEPARTMENT: General X-ray: Exam(s) Completed: Lower Extremity X-Ray(s): Knee, AP / Lat / Tunne / Merchant Left and Wt. Bearing PERIPHERAL IV DATA: Not applicable SIGNED BY: RT Tristan(R) September 11, 2020 9:44 AM [facility] History of Past illness Narrative 02-18-2005 Note Date & Type Note Facility documented as of this encounter (statuses as of 05/16/2021) [facility] Evaluation note Note Date & Type Note Facility documented in this encounter [facility] Summary Purpose Family History No Family History Records FoundNo Family History Records FoundNo Family History Records Found Advance Directives No Advanced Directives Records FoundNo Advanced Directives Records FoundNo Advanced Directives Records Found Medications Administered Section Inactive Administered Medications - up to 3 most recent administrations Medication Order MAR Action Action Date Dose Rate Site bupivacaine (PF) 0.5 % (5 mg/mL) 8 mL injection 8 mL, Injection - FOR ORTHO USE ONLY, ONE TIME INJECTION, 1 dose, Starting on Wed05/16/21 at 194, Until Wed05/16/21 at 1945 Given 05/16/2021 7:46 PM EDT 8 mL triamcinolone acetonide 80 mg injection (KENALOG 40) 80 mg, Injection - FOR ORTHO USE ONLY, ONE TIME INJECTION, 1 dose, Starting on Wed05/16/21 at 1946, Until Wed05/16/21 at 1945 Given 05/16/2021 7:46 PM EDT 80 mg Additional Source Comments INFORMATION SOURCE (unrecogn ized section and content) DATE CREATED AUTHOR AUTHOR'S ORGANIZ ATION 09/12/2020 [facility] DATE CREATED AUTHOR AUTHOR'S ORGANIZ ATION 05/21/2021 [facility] Source Comments (unrecognize d section and content) In the event this informatio n is protected by the Federal Confidentiality of Alcohol and Drug Abuse Patient Records regulations: The Federal rules restrict any use of the information to criminally investigate or prosecute any alcohol or drug abuse patient.[facility] Reason for Visit (unrecogniz ed section and content) Care Teams (unrecognized sec tion and content) FOR RECORDS PERTAINING TO PATIENTS WHO ARE OR HAVE BEEN ENROLLED IN A CHEMICAL DEPENDENCY/SUBSTANCEABUSE PROGRAM, SOME INFORMATION MAY BE OMITTED. This clinical summary was aggregated from multiple sources. Caution should be exercised in using it in the provision of clinical care. This summary normalizes information from multiple sources, and as a consequence, information in this document may materially change the coding, format and clinical context of patient data. In addition, data may be omitted in some cases. CLINICAL DECISIONS SHOULD BE BASED ON THE PRIMARY CLINICAL RECORDS. [facility]. provides no warranty or guarantee of the accuracy or completeness of information in this document.
== END | disposition home or self-care (01) ==
LOC: OPBI 09:11
PROVIDERS: PCP Family Medicine; Referring Provider Family Medicine; Visit Provider Family Medicine
DX: Z12.31 Encounter for screening mammogram for malignant neoplasm of breast (principal); Z80.3 Family history of malignant neoplasm of breast
CPT/HCPCS: 77063; 77067

== ENCOUNTER → 2023-06-24 | Outpatient (CLI) | payer MEDICARE, BC, SELFPAY ==
--- NOTE | 2023-06-24 15:50 | RAD_ITS ---
STUDY: X-RAY - RIGHT ANKLE REASON FOR EXAM: Female, 67 years old. PAIN AND SWELLING TECHNIQUE: 3 view(s) of the ankle. COMPARISON: None. FINDINGS: Normal visualized distal tibia and fibula. Normal medial and lateral malleoli. Normal tibiotalar articulation and ankle mortise. Normal visualized talus and calcaneus. The visualized subtalar, talonavicular, calcaneocuboid and tarsal articulations are normal. There is no demonstrated fracture. The soft tissue structures are unremarkable. RAD/Ankle min 3 Views IMPRESSION: Normal x-ray examination of the ankle. Electronically Signed: Dillon Reed MD at 20:59 EDT ,
[2023-06-24 17:42] LABS: Erythrocyte Sedimentation Rate 15 mm/hr (0-30)
[2023-06-24 18:29] LABS: Rheumatoid Factor < 10.0 IU/mL (<15); Uric Acid 4.4 mg/dL (2.6-6.0)
== END | disposition home or self-care (01) ==
PROVIDERS: PCP Family Medicine; Referring Provider Family Medicine; Visit Provider Family Medicine
DX: M25.571 Pain in right ankle and joints of right foot (principal)
CPT/HCPCS: 36415; 73610; 84550; 85652; 86140; 86431

== ENCOUNTER 2023-09-29 12:30 | Outpatient (RCR) | payer MEDICARE, BC, SELFPAY ==
--- NOTE | 2023-08-24 15:50 | HP.PTEVAL_ITS ---
Patient's Visit Information Visit Information Visit Information: LATONYA LAW is a 68 year old F referred to Physical Therapy by Dr. Ramirez Pollack MD with a diagnosis of Lumbar radiculopathy. Date of Evaluation: 08/24/23 Physical Therapist: Mj Allen DPT Visit Plan Frequency: 2x /Week Duration: 4 Weeks Plan: Start with neutral spine core strengthening, progressing to quadruped and eventually dynamic stability. HEP at IE: supine, clam shell PTB, TA marching, iso hip flexion Subjective Subjective: Pt. is here today for her initial evaluation with diagnosis of lumbar radiculopathy. Pt. reports having increased back pain for years, but has progressively worsening more recently. She reports no sharp pain in her back, but has more weakness in her BLEs. Pt. does have some pain in her back, uses Tylenol and Celebrex to manage. She has had injections in the past as well. She has tried PT in aquatic setting, but did not help much. No changes in B/B. Pt. Pain Lumbar spine: Pain Intensity (Out of 10): 2 Pain Intensity Range: 0 and 4 Objective Objective: POSTURE: Pt. has decent posture in stance. Slight flexed posture. PALPATION: Pt. has some mild tenderness along lumbar spine, but minimal. NEURO: normal throughout. ROM: LUMBAR SPINE: flexion min loss mild increase NW, ext min loss NE, SB min/nil loss NE bilat, rotation nil loss NE bilat. Pt. has normal HS length noted bilaterally. Normal hip ROM bilaterally, slight tightness with hip ER, normal hip IR. MMT: Pt. has no myotomal weakness in either LE. Core strength: poor+. GAIT: pt. has fairly normal gait pattern, slight increase in lateral sway, but no marked trendelemburg noted. STAIRS: fairly normal NE. Special Tests L/S Slump test left side: Negative L/S Slump test right side: Negative L/S Left Straight Leg Raise: Negative L/S Right Straight Leg Raise: Negative Balance/Special Test Scores Oswestry Low Back Score: 18 Goals Goal 1:: LTG: Pt. to be I with HEP. Goal Time Frame: 4-6 Weeks Goal 2:: STG: Pt. to have decreased overall symptoms to 0-2/10 pain in lumbar spine and BLEs at rest. Goal Time Frame: 2-4 Weeks Goal 3:: LTG: Pt. to complete all daily activities with 0-2/10 pain in Lumbar spine and BLEs. Goal Time Frame: 4-6 Weeks Goal 4:: LTG: Pt. to have increased core strength to fair in order to decreased lumbar spine pain with all ADLs. Goal Time Frame: 4-6 Weeks Goal 5:: LTG: Pt. to be able to walk 1+ miles without 0-2/10 pain in lumbar spine and BLEs. Rehabilitation Potential Physical Therapy Diagnosis: Pt. has signs and symptoms with lumbar radiculopathy. Pt. Rehabilitation Potential: Good Anticipated Interventions Patient/Client Instruction: Educate patient on: Condition, Plan of Care, Risk Factors and Benefits of Fitness Program For the Purpose of:: To facilitate caregiver knowledge, To improve self management, To prevent re-injury, To improve ability to perform tasks related to life management and To improve tolerance to ADL's Therapeutic Exercise to Include: Strength training, Power training, Endurance training, Postural training, Flexibilty training and Dynamic Lumbar Stabilization For the Purpose of:: To decrease pain, To increase ROM, To improve nutrient del enmanuel to tissue, To increase oxygenation perfusion, To improve muscle performance and motor function and To improve ability to perform ADL's Text: Thank you for the opportunity to evaluate your patient. For Medicare and Medicare HMO plans, please review the plan of care and approve it. It will need to be FAXED BACK to us at [phone] for Medicare purposes. For Medicare only, by signing this I certify the plan of care. Please let me know if there are questions or concerns regarding this plan of care. Physician Signature:__ Date:
--- NOTE | 2023-09-30 08:08 | HP.PTREVAL ---
Re-Evaluation Intro: Dr. Ramirez Pollack MD, It has been my pleasure to treat LATONYA LAW over the last 9 visits for Lumbar radiculopathy. Please see the progress note below for an update on the physical therapy plan of care! Subjective Subjective: Pt. reports overall doing much better. She is no longer having pain going down her leg. She does have some low back pain still but is improving. She reports being a little sore today after helping a SNF resident complete a puzzle where she was bend over for a longer period of time. Pt reports being 70% better overall. Objective Objective/Function: ROM: Lumbar spine: flexion min loss NE, ext mod loss mild increase NW, SB nil loss NE, rotation nil loss NE. MMT: Pt. has fair core strength, LE symmetrical and equal. GAIT: Pt. has normal gait pattern. without increase in symptoms. Overall she is doing well. Her exercises include mostly neutral spine core strengthening. She plans on continuing with this for the next few weeks. She is to complete on her own and then follow back up with PT in 4 weeks. Plan Plan Plan: Pt. is to continue on her own then follow back up with PT in 4 weeks if needed. Balance/Gait/Functional tests Balance/Special Test Scores Oswestry Low Back Score: 18 Goals Goals Goal 1:: LTG: Pt. to be I with HEP. Goal Time Frame: 4-6 Weeks Goal Progress: Goal Met Goal 2:: STG: Pt. to have decreased overall symptoms to 0-2/10 pain in lumbar spine and BLEs at rest. Goal Time Frame: 2-4 Weeks Goal Progress: Goal Met Goal 3:: LTG: Pt. to complete all daily activities with 0-2/10 pain in Lumbar spine and BLEs. Goal Time Frame: 4-6 Weeks Goal Progress: Progressing Goal 4:: LTG: Pt. to have increased core strength to fair in order to decreased lumbar spine pain with all ADLs. Goal Time Frame: 4-6 Weeks Goal Progress: Goal Met Goal 5:: LTG: Pt. to be able to walk 1+ miles without 0-2/10 pain in lumbar spine and BLEs. Goal Progress: Goal Met Anticipated Interventions Anticipated Interventions Patient/Client Instruction: Educate patient on: Condition, Plan of Care, Risk Factors and Benefits of Fitness Program For the Purpose of:: To facilitate caregiver knowledge, To improve self management, To prevent re-injury, To improve ability to perform tasks related to life management and To improve tolerance to ADL's Therapeutic Exercise to Include: Strength training, Power training, Endurance training, Postural training, Flexibilty training and Dynamic Lumbar Stabilization For the Purpose of:: To decrease pain, To increase ROM, To improve nutrient delivery to tissue, To increase oxygenation perfusion, To improve muscle performance and motor function and To improve ability to perform ADL's Re-Evaluation Ending Re-evaluation ending: Please do not hesitate to contact me at [phone] by phone or if you have questions or concerns regarding this new plan of care! Sincerely, JOAN NagelT
== END 2023-09-29 19:00 | disposition home or self-care (01) ==
LOC: PT 12:30
PROVIDERS: PCP Family Medicine; Referring Provider Orthopaedic Surgery Orthopaedic Surgery of the Spine; Visit Provider Orthopaedic Surgery Orthopaedic Surgery of the Spine
DX: M54.16 Radiculopathy, lumbar region (principal)
CPT/HCPCS: 97110; 97161; 97530

== ENCOUNTER → 2023-10-13 | Outpatient (CLI) | payer MEDICARE, BC, SELFPAY ==
--- NOTE | 2023-10-13 10:58 | RAD_ITS ---
STUDY: X-RAY - RIGHT ANKLE REASON FOR EXAM: Female, 68 years old. PAIN TECHNIQUE: 3 view(s) of the ankle. COMPARISON: None. FINDINGS: Normal visualized distal tibia and fibula. Normal medial and lateral malleoli. Normal tibiotalar articulation and ankle mortise. Normal visualized talus and calcaneus. The visualized subtalar, talonavicular, calcaneocuboid and tarsal articulations are normal. The soft tissue structures are unremarkable. RAD/Ankle min 3 Views IMPRESSION: Normal x-ray examination of the ankle. Electronically Signed: Eric Mann MD at 13:43 EDT ,
[2023-10-13 15:18] LABS: Erythrocyte Sedimentation Rate 5 mm/hr (0-30)
[2023-10-13 15:48] LABS: CRP 7.88 mg/L (0.0-3.0)
[2023-10-19 15:09] LABS: Anti-Nuclear Antibody Test Negative (.)
[2023-10-21 12:09] LABS: HLA B27 Negative (.)
== END | disposition home or self-care (01) ==
LOC: MTLAB 10:56
PROVIDERS: PCP Family Medicine; Referring Provider Podiatrist; Visit Provider Podiatrist
DX: M06.9 Rheumatoid arthritis, unspecified (principal); M25.579 Pain in unspecified ankle and joints of unspecified foot
CPT/HCPCS: 36415; 73610; 81374; 84550; 85652; 86038; 86140; 86431

== ENCOUNTER 2023-12-04 08:18 | Emergency (ER) | payer MEDICARE, BC, SELFPAY ==
[2023-12-04 08:19] VITALS: BP 171/71; PULSE 105; RESP 16; TEMP 35.7; O2SAT 98; BMI 19.1
--- NOTE | 2023-12-04 09:09 | ED.VIS.BACK ---
HPI History of Present Illness Chief Complaint: Back Informant: patient and spouse/S.O. Onset/Context/Timing Onset: Days and - (9 days or so.) Context: Gradual Onset Injury: bending Timing: Continuous Quality: Sharp Current Severity: Moderate Maximum Severity: Moderate Worsened by: improves with Movement Relieved by: Nothing Associated Symptoms Associated Symptoms: Negative for Numbness, Tingling, Radiation to Right Leg, Dysuria, Unable to Ambulate, Constipation or Fecal Incontinence Narrative Narrative: 68-year-old female history of spinal stenosis and osteoarthritis in her back. Said back pain after leaning over looking into refrigerator about 9 days ago. No fall no trauma. No dysuria. No new incontinence. No weakness in her lower extremities. She tried to get out of her paint line operator Dr. Schroeder I believe he did an injection on Wednesday but she has not been able to get follow-up since that time. Prior similar symptoms: Yes Recent Illness/Hospitalization: No PFSH PFSH Medical History Spinal stenosis Hypertension Osteoarthritis Home Medications ?Medication ?Instructions ?Recorded ?Last Taken ?Type atorvastatin 10 mg tablet (Lipitor) 10 mg PO QDAY 01/28/17 Unknown History buspirone 10 mg tablet 10 mg PO BID 08/05/23 Unknown History celecoxib 100 mg capsule (Celebrex) 100 mg PO BID 08/05/23 Unknown History losartan 100 1 tab PO QDAY 08/05/23 Unknown History mg-hydrochlorothiazide 25 mg tablet oxycodone 5 mg capsule 5 mg PO Q6H PRN pain 7 days #20 12/04/23 Unknown Rx caps Allergy/AdvReac Type Severity Reaction Status Date / Time codeine AdvReac Other Verified 12/04/23 08:19 Surgical History Hx of arthroscopy of left knee (~2019) Social History Smoking Status: Former smoker alcohol intake: current ROS ROS ED ROS Narrative Denies recent illness. Acute on chronic back pain. Constitutional Constitutional ED: Denies chills or fever(s) Eyes Eyes: Denies blurry vision ENT ENT ED: Denies ear pain Cardiovascular Cardiovascular: Denies chest pain Respiratory/Chest Respiratory/Chest: Denies dyspnea Gastrointestinal Gastrointestinal: Denies abdominal pain Genitourinary Genitourinary ED: Denies dysuria or hematuria Musculoskeletal Musculoskeletal: Reports back pain; Denies arthralgias Integumentary Denies abscess Neurologic Neurologic: Denies headache(s) Psychiatric Psychiatric: Denies anxiety Endocrine Endocrinology: Denies cold intolerance Hematologic/Lymphatic Hematologic/Lymphatic: Denies easy bleeding Allergic/Immunologic Allergic/Immunologic ED: Denies mouth swelling EXAM Physical Exam Narrative Exam Narrative: Send 8-year-old female sitting in a chair vital signs are stable afebrile. Companied by her . H EENT exam unremarkable. Lungs clear. Heart regular rhythm rate about 105 no murmur. Chest wall ribs nontender. Abdomen soft nontender. Moving all 4 extremities. Neurovascularly intact. No cauda equina. Dorsi plantarflexion intact. Normal sensation. Nontender no edema. Back she has pain over her lower lumbar spine. There is no ecchymosis or bruising. No redness or warmth. No signs of trauma. Neurologically she is awake and alert. Was in a chair when I entered the room for the exam she stood up from the chair and easily transferred to the bed. She is complaining of discomfort in her back. Const Vital Signs: 12/04/23 08:19 12/04/23 10:25 Temperature 96.3 F L 97.2 F L Temperature Source Temporal Oral Pulse Rate 105 H 82 Respiratory Rate 16 16 Blood Pressure 171/71 H 134/78 H Blood Pressure Mean 104 96 Pulse Ox 98 97 Oxygen Delivery Method Room Air Room Air Positive well nourished and well developed; Negative for obese, cachectic, contractures or unkempt General Appearance ED: well developed; Negative for unkempt, cachectic, contractures, NAD or pallor Nutritional Appearance: Negative for cachectic or obese HEENT Reports moist mucous membranes Negative for trauma or tenderness Eyes PERRL and EOMs intact bilaterally General Eye ED: Negative for pale conjunctiva or scleral icterus Neck no lymphadenopathy, supple and no JVD General: Negative for tenderness Thyroid: Negative for other Resp normal respiratory effort and clear to auscultation bilaterally Effort and Inspection: Negative for pain with movement Auscultation: Negative for rales, rhonchi, wheezes or diminished lung sounds Cardio regular rhythm, S1 normal heart sound, S2 normal heart sound and no murmurs; Negative for regular rate Rate: tachycardic GI normal to inspection, nondistended, normoactive bowel sounds, soft to palpation, non-tender, non-distended and no masses Palpation: Negative for tender, guarding, mass, pulsatile mass or rebound tenderness present Back/Spine normal to inspection; Negative for no thoracic nor lumbar tenderness Back/Spine Narrative: Lower lumbar tenderness and sacrum. Cervical Spine: Negative for cervical spine tenderness and Negative for paracervical muscle tenderness Thoracic Spine / Upper Back: Negative for paraspinal muscle tenderness Lumbar Spine / Lower Back: Negative for ROM limited Extremity normal to inspection and no clubbing, cyanosis or edema General Extremety ED: Negative for edema or tenderness General Extremity: Negative for edema Neuro no sensory deficits noted Sensorium / Orientation: Negative for alert, confused, lethargic or stuporous Motor Exam: strength 5/5 throughout Psych mental status grossly normal Appearance: Negative for unkempt Mood & Affect: tearful Skin no rashes or lesions noted and no wounds General Skin Exam: Negative for jaundice or pallor Lesions: No lesion noted Rashes: No rashes noted Trauma: Negative for abrasion, puncture or other Wounds: Negative for wounds noted MDM MDM MDM Narrative Medical decision making narrative: 68-year-old female with atraumatic low back pain with a history of spinal stenosis. Neurologically she is intact. No cauda equina. X-rays will be obtained of her lumbar spine and pelvis. She is concerned about a possible fracture due to osteoporosis. She had no trauma was just bent over. Repeat exam patient is doing well at 11:30 AM. She was able to ambulate to the bathroom just prior to me reevaluating her. Exams unchanged. Her pain is much better to the IM morphine. We discussed her x-ray results. She is comfortable being discharged to home. I will write her for some oxycodone for pain. And she will follow-up with her pain management doctor Dr. Moi Becerra. She knows if this continues she may need a follow-up MRI. Radiography Diagnostic Testing: Clinical Impression(s) from Imaging Studies Lumbar Spine X-Ray 12/04/23 09:35 IMPRESSION: Degenerative changes of the spine, as detailed above. No acute fracture or suspicious osseous lesion Dextroscoliosis Electronically Signed: Alec Poe MD at 9:48 EDT , Pelvis X-Ray 12/04/23 09:35 IMPRESSION: Age consistent hip and SI joint arthrosis without acute fracture or suspicious osseous lesion. No significant interval change. However, hip and pelvic fractures in patients of this age can be subtle, if there is strong clinical suspicion of a fracture, recommend further evaluation with CT Electronically Signed: Alec Poe MD at 9:47 EDT , Lumbar spine x-ray, 3 views shows chronic changes. Arthritis. No fracture. Interpreted both by myself and the radiologist. Pelvis x-ray, single view, interpreted by myself and radiologist. Shows chronic changes. Arthritis. But no fracture. Discharge Plan Triage Chief Complaint: Back ED Provider: Jhonathan Spencer Dx/Rx/DC Orders Clinical Impression: Acute lumbar back pain, Spinal stenosis at L4-L5 level, Facet arthritis of lumbar region, History of degenerative disc disease Instructions: ED Back Pain (Acute or Chronic) Prescriptions: New oxycodone 5 mg capsule 5 mg PO Q6H PRN (Reason: pain) 7 Days Qty: 20 0RF No Action atorvastatin [Lipitor] 10 mg tablet 10 mg PO QDAY celecoxib [Celebrex] 100 mg capsule 100 mg PO BID losartan-hydrochlorothiazide 100-25 mg tablet 1 tab PO QDAY buspirone 10 mg tablet 10 mg PO BID Primary Care Provider: Anita Luque Referrals: Patricia Schroeder MD [Med Staff - Active Staff] - As soon as possible Anita Luque, [Primary Care Provider] - Activity Restrictions/Additional Instructions: Ice to your back. Oxycodone for pain. Anytime you take a pain medication it can make you nauseated. Take it with food on your stomach. It can make you constipated. Take it with plenty of fluids throughout the day. Fruits and vegetables and fiber to prevent constipation and stool softener as needed. Do not drive after using the pain medication. Call and follow-up with Dr. Schroeder as soon as possible. They will need to do further evaluation and possibly it is set up for an MRI. Print Language: New Zealander Disposition Disposition: Home, Self Care
[2023-12-04] MEDS: Ondansetron 8 MG Tablet PO (09:25)
[2023-12-04] MEDS: morphine 10 MG/ML Syringe 8 MG IM (09:27)
--- NOTE | 2023-12-04 09:35 | RAD_ITS ---
STUDY: X-RAY - PELVIS REASON FOR EXAM: Female, 68 years old. Pain TECHNIQUE: One view of the pelvis was obtained. COMPARISON: 09/01/2021 FINDINGS: There is a non-specific bowel gas pattern. Normal visualized soft tissue structures. There is narrowing with cortical sclerosis and osteophyte formation of the sacroiliac joint consistent with degenerative osteoarthritic changes. Normal visualized bilateral superior and inferior pubic rami. Normal pubic symphysis. Normal ischial tuberosities. Normal visualized right femoral head. Normal right acetabulum. There is mild articular joint space narrowing of the right hip. Normal visualized left femoral head. Normal left acetabulum. There is mild articular joint space narrowing of the left hip. RAD/Pelvis 1 or 2 Views IMPRESSION: Age consistent hip and SI joint arthrosis without acute fracture or suspicious osseous lesion. No significant interval change. However, hip and pelvic fractures in patients of this age can be subtle, if there is strong clinical suspicion of a fracture, recommend further evaluation with CT Electronically Signed: Alec Poe MD at 9:47 EDT ,
--- NOTE | 2023-12-04 09:35 | RAD_ITS ---
STUDY: X-RAY - LUMBAR SPINE REASON FOR EXAM: Female, 68 years old. Radiating low back pain TECHNIQUE: 2 view(s) of the lumbar spine were obtained. COMPARISON: 08/05/2023 FINDINGS: Normal lumbar lordosis. There is a dextroscoliosis of the lumbar spine. There is a normal alignment of the vertebrae in the lateral view. There is multilevel endplate spondylosis of the lumbar vertebrae. Mild disc space narrowing throughout the lumbar spine. There is no demonstrated fracture. There is atherosclerotic calcification of the abdominal aorta without a demonstrated aneurysm. RAD/Lumbar Spine 2 or 3 Views IMPRESSION: Degenerative changes of the spine, as detailed above. No acute fracture or suspicious osseous lesion Dextroscoliosis Electronically Signed: Alec Poe MD at 9:48 EDT ,
[2023-12-04 10:25] VITALS: BP 134/78; PULSE 82; RESP 16; TEMP 36.2; O2SAT 97
== END 2023-12-04 11:43 | disposition home or self-care (01) ==
PROVIDERS: Emergency Provider Emergency Medicine; PCP Family Medicine; Visit Provider Emergency Medicine
DX: M48.061 Spinal stenosis, lumbar region without neurogenic claudication (principal); M47.816 Spondylosis without myelopathy or radiculopathy, lumbar region; I10 Essential (primary) hypertension; G89.29 Other chronic pain; Z79.899 Other long term (current) drug therapy; Z87.891 Personal history of nicotine dependence
CPT/HCPCS: 72100; 72170; 96372; 99282

== ENCOUNTER → 2023-12-07 | Outpatient (CLI) | payer MEDICARE, BC, SELFPAY ==
--- NOTE | 2023-12-07 12:22 | MRI_ITS ---
STUDY: MRI LUMBAR SPINE WITHOUT CONTRAST REASON FOR EXAM: Female, 68 years old. LUMBAR RADICULOPATHY, NO SPECIFIC INJURY, PAIN INTO L POSTERIOR LEG TECHNIQUE: Standardized fat and water weighted pulse sequences were obtained in the sagittal and axial planes. COMPARISON: Lumbar spine radiograph December 04, 2023. MRI lumbar spine 05/07/2020. FINDINGS: T12-L1: Normal endplates. Normal disc height, hydration and morphology. Normal bilateral facet joints. Normal central canal and bilateral lateral recesses. Normal bilateral intervertebral neural foramina. Normal lumbar lordosis. Mild dextroconvex scoliosis. Normal conus medullaris that terminates at the L1 level. L1-2: Normal endplates. Normal disc height, hydration and morphology. Normal bilateral facet joints. Normal central canal and bilateral lateral recesses. Normal bilateral intervertebral neural foramina. L2-3: Normal endplates. Normal disc height, hydration and morphology. Normal bilateral facet joints. Normal central canal and bilateral lateral recesses. Normal bilateral intervertebral neural foramina. L3-4: Fluid-filled hypertrophic facets and slight anterior subluxation causes mild trefoil type narrowing of the thecal sac. Mild narrowing of the neural foramen on the left. L4-5: Fluid-filled hypertrophic facets and slight anterior subluxation causes mild trefoil type narrowing of the thecal sac. Mild narrowing of the neural foramen on the left. L5-S1: Normal endplates. Normal disc height, hydration and morphology. Normal bilateral facet joints. Normal central canal and bilateral lateral recesses. Mild narrowing bilateral intervertebral neural foramina. Normal visualized sacral ala. Normal visualized paraspinous soft tissue structures. MRI/Spine Lumbar (Routine) IMPRESSION: New grade 1 spondylolisthesis L3-4. Stable Grade 1 spondylolisthesis L4-5. Spinal stenosis is noted above. No significant interval change. Electronically Signed: Laureano Almaraz MD at 17:54 EDT ,
== END | disposition home or self-care (01) ==
LOC: MRI 12:17
PROVIDERS: PCP Family Medicine; Referring Provider Anesthesiology Pain Medicine; Visit Provider Anesthesiology Pain Medicine
DX: M54.16 Radiculopathy, lumbar region (principal)
CPT/HCPCS: 72148; A9575; A4216

== ENCOUNTER → 2024-01-31 | Outpatient (CLI) | payer MEDICARE, BC, SELFPAY ==
[2024-01-31 12:25] LABS: Erythrocyte Sedimentation Rate 16 mm/hr (0-30)
[2024-01-31 12:27] LABS: Absolute Lymphocyte Count 1.48 X10^3/uL (0.83-4.51); Absolute Neutrophil Count 4.7 X10^3/uL (2.0-7.7); Basophil# 0.03 X10^3/uL; Basophil% 0.4 % (0-1); Eosinophil# 0.09 X10^3/uL; Eosinophils% 1.3 % (0-5); Hematocrit 41.3 % (37-47); Hemoglobin 13.4 g/dL (12.0-15.0); Lymphocyte # 1.48 X10^3/ul (0.83-4.51); Lymphocyte % 21.5 % (19-41); Mean Corp Hgb Conc 32.4 g/dL (32-36); Mean Corpuscular Hgb 33.5 pg (27.0-32.0); Mean Corpuscular Volume 103.3 fL (81-99); Mean Platelet Vol. 9.7 fl (6.2-12.0); Monocyte# 0.52 X10^3/uL; Monocyte% 7.5 % (0-10); NRBC Flagged by Analyzer 0 % (0-5); Neutrophil # 4.71 X10^3/uL (2.7-7.7); Neutrophil % 68.4 % (47-70); Platelet Count 343 K/mm3 (150-450); RBC Distribution Width CV 14.3 % (11.6-14.6); RBC Distribution Width SD 54.4 fl (35.1-43.9); White Blood Count 6.9 K/mm3 (4.4-11.0)
[2024-01-31 12:52] LABS: AST(SGOT) 30 U/L (15-37); Alanine Aminotransfer ALT/SGPT 42 U/L (13-56); Albumin, Serum 3.8 g/dL (3.2-5.0); Alkaline Phosphatase 150 U/L (45-117); Anion Gap 7 (5-15); BUN 19 mg/dL (7-18); BUN/Creat Ratio 23.3 RATIO (10-20); CRP 9.08 mg/L (0.0-3.0); Calcium,Total 9.1 mg/dL (8.5-10.1); Chloride 103 mmol/L (98-107); Cholesterol 196 mg/dL (200); Creatinine, Serum 0.82 mg/dL (0.55-1.02); EST Glomerular Filtration Rate 74 mL/min (>60); Est Glom Filt Rate - Afr Amer 89 mL/min (>60); Globulin 3.9 g/dL (2.2-4.2); Glucose 90 mg/dL (74-106); High Density Lipoprotein 111 mg/dL; Potassium 3.8 mmol/L (3.5-5.1); Protein, Total 7.7 g/dL (6.4-8.2); Rheumatoid Factor < 10.0 IU/mL (<15); Sodium Level 137 mmol/L (136-145); Triglycerides 83 mg/dL; Very Low Density Lipoprotein 17 mg/dL (5-40)
[2024-02-01 11:09] LABS: CCP IgG Antibodies 8 units (0-19)
== END | disposition home or self-care (01) ==
LOC: BFHLAB 09:55
PROVIDERS: PCP Family Medicine; Referring Provider Family Medicine; Visit Provider Family Medicine
DX: M06.9 Rheumatoid arthritis, unspecified (principal); E78.5 Hyperlipidemia, unspecified; Z51.81 Encounter for therapeutic drug level monitoring
CPT/HCPCS: 36415; 80053; 80061; 85025; 85652; 86140; 86200; 86431

== ENCOUNTER → 2024-02-07 | Outpatient (CLI) | payer MEDICARE, BC, SELFPAY ==
--- NOTE | 2024-02-06 11:44 | MRI_ITS ---
EXAM: MR RIGHT LOWER EXTREMITY WITHOUT INTRAVENOUS CONTRAST, HIP CLINICAL INDICATION: pain TECHNIQUE: Multiplanar and multisequence MR images of the right hip without intravenous contrast. COMPARISON: No relevant prior studies available. FINDINGS: TENDONS: FLEXORS: Unremarkable. Intact. EXTENSORS/HAMSTRING: Unremarkable. Intact. ABDUCTORS: Unremarkable. Intact. ADDUCTORS: Unremarkable. Intact. ROTATORS: Unremarkable. Intact. MUSCLES: Increased T2 signal along the right abductor brevis muscle and pectineus muscle. This may suggest partial tear or muscular strain. FLUID: Unremarkable. No joint effusion. No trochanteric bursitis. LABRUM: Unremarkable. No evidence of a tear on this non-arthrogram exam. CARTILAGE: Unremarkable. Articular cartilage intact. BONES/JOINTS: Diffuse abnormal increased T2 signal along the sacral ala consistent for insufficiency fractures. Increased T2 signal of the symphysis pubis suggesting osteitis pubis. No femoral neck fracture. No avascular necrosis of the femoral head. OTHER SOFT TISSUES: Unremarkable. MRI/Lower Ext Joint Only (Routine) IMPRESSION: 1. Diffuse abnormal increased T2 signal along the sacral ala consistent for insufficiency fractures. 2. Increased T2 signal of the symphysis pubis suggesting osteitis pubis. 3. Increased T2 signal along the right abductor brevis muscle and pectineus muscle. This may suggest partial tear or muscular strain. Electronically Signed: Juwan Carrillo MD at 19:47 EST ,
== END | disposition home or self-care (01) ==
PROVIDERS: PCP Family Medicine; Referring Provider Orthopaedic Surgery; Visit Provider Orthopaedic Surgery
DX: M25.551 Pain in right hip (principal)
CPT/HCPCS: 73721

== ENCOUNTER → 2024-03-27 | Outpatient (CLI) | payer MEDICARE, BC, SELFPAY ==
[2024-03-27 12:21] LABS: Erythrocyte Sedimentation Rate 13 mm/hr (0-30)
[2024-03-27 16:03] LABS: CRP 4.55 mg/L (0.0-3.0); Rheumatoid Factor < 10.0 IU/mL (<15)
[2024-03-29 18:07] LABS: CCP IgG Antibodies 5 units (0-19)
== END | disposition home or self-care (01) ==
LOC: BFHLAB 10:40
PROVIDERS: PCP Family Medicine; Referring Provider Family Medicine; Visit Provider Family Medicine
DX: M25.50 Pain in unspecified joint (principal); R76.8 Other specified abnormal immunological findings in serum
CPT/HCPCS: 36415; 85652; 86140; 86200; 86431

== ENCOUNTER 2024-03-28 10:00 | Outpatient (RCR) | payer MEDICARE, BC, SELFPAY ==
--- NOTE | 2024-02-29 13:37 | HP.PTEVAL ---
Patient's Visit Information Visit Information Visit Information: LATONYA LAW is a 68 year old F referred to Physical Therapy by Dr. Augustin Joseph DO with a diagnosis of R hip groin strain. Date of Evaluation: 02/29/24 Physical Therapist: Juwan Lewis, PT, ATC Visit Plan Frequency: 2x /Week Duration: 4-6 Weeks Plan: R hip stretching and strengthening, core stab ex's, nustep, and HEP Subjective Subjective: Pt reports she has had R hip pain for over 3 months. Pt notes she was defrosted her freezer at that time and started to experience severe LBP. Pt notes she had an injection which did help some. Pt notes then she went trick or treating with her grandkids and has had R hip and groin pain since. Pt believes it was due to walking on uneven surfaces. Pt reports she has had a x-ray and MRI of her hip which reveals no significant findings other than a groin strain. Pt reports she also has some fractures in her sacral region which she attributes to her having osteoporosis. Pt reports she is able to sleep okay once she takes her pain meds. Pt reports she has stairs that go to her basement which she is unable to negotiate at this time secondary to pain. Pt also notes difficulty with getting in/out of her tub. Pt reports her LBP always [id number] by the end of the day, which coincides with her R groin pain. 3/10 pain while sitting here at rest, 8/10 pain at worst (by the end of the day) Pain R hip and groin: Pain Intensity (Out of 10): 3 Pain Intensity Range: 8 Objective Objective: Neuro: B LE sensation is WNL to light touch Palpation: Mild pain on greater trochanter. No obvious deformity at this time TU sec ROM: R hip flex= 45, abd= 30 degrees; L hip flex= 90, abd= 45 degrees MMT: L hip flex= 20, abd= 26 #F; R hip flex= 13, abd= 18 #F Balance/Special Test Scores Lower Extremity Functional Score: 17 Goals Goal 1:: Decrease R groin pain x 50% to aid with sleep Goal Time Frame: 4-6 Weeks Goal 2:: Increase R hip flexion and hip add strength x 5-10#F to aid with car transfers Goal Time Frame: 4-6 Weeks Goal 3:: I with HEP Goal Time Frame: 4-6 Weeks Rehabilitation Potential Physical Therapy Diagnosis: Pt has R hip pain, weakness, and difficulty with ambulation secondary to L hip groin strain Rehabilitation Potential: Good Anticipated Interventions Patient/Client Instruction: Educate patient on: Condition For the Purpose of:: To improve self management Therapeutic Exercise to Include: Strength training, Endurance training, Balance training, Flexibilty training and Dynamic Lumbar Stabilization For the Purpose of:: To decrease pain, To increase ROM and To improve muscle performance and motor function Text: Thank you for the opportunity to evaluate your patient. For Medicare and Medicare HMO plans, please review the plan of care and approve it. It will need to be FAXED BACK to us at [phone] for Medicare purposes. For Medicare only, by signing this I certify the plan of care. Please let me know if there are questions or concerns regarding this plan of care. Physician Signature: Date:
--- NOTE | 2024-03-28 10:40 | HP.PTDCSUM ---
Discharge Summary D/C summary: It has been my pleasure to treat LATONYA LAW referred by Dr. Augustin Joseph DO, with the diagnosis of R hip groin strain for a total of 9 visit(s). Discharge Date: Please see the following information for a summary of their discharge status. Subjective Subjective: Pt reports she has gotten worse over the past couple days Pain R hip and groin: Pain Intensity (Out of 10): 7 Overall Improvement % Improvement: 70 Objective Objective/Function: R hip pain 08/31 this MMT: R hip flex= 17, abd= 37, add= 36 #F Pt is I with HEP Goals Goal 1:: Decrease R groin pain x 50% to aid with sleep Goal Progress: Progressing Goal 2:: Increase R hip flexion and hip add strength x 5-10#F to aid with car transfers Goal Progress: Goal Met Goal 3:: I with HEP Goal Progress: Goal Met Plan Plan: Discontinue to HEP D/C Information d/c sentence: If there are questions or concerns regarding this patient's physical therapy, please feel free to call me at [phone]. Thank you for the referral of this patient. Sincerely, Juwan Lewis, PT, ATC Balance/Gait/Functional tests Balance/Special Test Scores Lower Extremity Functional Score: 26 Improvement % Improvement: 70
== END 2024-03-28 13:52 | disposition home or self-care (01) ==
LOC: PT 10:00
PROVIDERS: PCP Family Medicine; Referring Provider Orthopaedic Surgery; Visit Provider Orthopaedic Surgery
DX: M84.48XD Pathological fracture, other site, subsequent encounter for fracture with routine healing (principal); S76.211D Strain of adductor muscle, fascia and tendon of right thigh, subsequent encounter
CPT/HCPCS: 97110; 97161; 97530

== ENCOUNTER → 2024-03-29 | Outpatient (CLI) | payer MEDICARE, BC, SELFPAY ==
--- NOTE | 2024-03-29 10:39 | BI_ITS ---
PROCEDURE: SCRN MAMM (CAD)W/BETH BILAT REASON FOR EXAM: F, Age 68 y/o, sister with breast cancer. TECHNIQUE: Bilateral screening digital breast tomosynthesis with 2D and 3D images. Computer aided detection. COMPARISON: Prior exam(s) dating back to March 23, 2023.. FINDINGS: The breasts are extremely dense which lowers the sensitivity of mammography. Stable examination. No suspicious masses, areas of developing architectural distortion, or suspicious calcifications. BI/SCRN MAMM (CAD)W/BETH BILAT IMPRESSION: BI-RADS 1: NEGATIVE. RECOMMEND ANNUAL MAMMOGRAPHIC SCREENING. Follow-up code: Routine Follow-up The patient will be notified of the results by letter. Reading Location: [place] [id number]
== END | disposition home or self-care (01) ==
PROVIDERS: PCP Family Medicine; Referring Provider Family Medicine; Visit Provider Family Medicine
DX: Z12.31 Encounter for screening mammogram for malignant neoplasm of breast (principal)
CPT/HCPCS: 77063; 77067

== ENCOUNTER → 2024-04-03 | Outpatient (CLI) | payer MEDICARE, BC, SELFPAY ==
--- NOTE | 2024-04-03 07:57 | RAD_ITS ---
EXAM: Successful right hip injection. CLINICAL HISTORY: Chronic right hip pain. COMPARISON: None. TECHNIQUE: The procedure as well as the benefits and possible complications including infection and bleeding were explained to the patient. Informed consent was obtained. The patient was in the supine position. The overlying skin was prepped and draped in the usual sterile fashion. Following local anesthetic application in under direct fluoroscopic guidance, a 22 gauge spinal needle was placed into the hip joint. 2 cc of Isovue 300 was injected for confirmation. Following this, 60 mg of Kenalog and 2 cc of 1% lidocaine was injected. The patient tolerated the procedure well. The procedure was performed with Laly Dias CNP. FINDINGS: Successful right hip injection. RAD/Inj/Asp Vic Jt Should/Hip/Knee IMPRESSION: Successful right hip injection. Reading Location: [place] [id number]
[2024-04-03] MEDS: Lidocaine 2% (5ml sdv) 5 ML VIAL.MPF (08:35)
[2024-04-03] MEDS: Lidocaine 1% (5 ml sdv) 5 ML Vial 2 ML OPERA.SITE (08:37)
[2024-04-03] MEDS: Triamcinolone Acetonide 40 MG/ML Vial 60 MG INTRAARTIC (08:37)
== END | disposition home or self-care (01) ==
LOC: RAD 07:57
PROVIDERS: PCP Family Medicine; Referring Provider Family Medicine; Visit Provider Family Medicine
DX: M25.551 Pain in right hip (principal)
CPT/HCPCS: 20610; 77002

== ENCOUNTER → 2025-01-29 | Outpatient (CLI) | payer MEDICARE, BC, SELFPAY ==
[2025-01-29 12:37] LABS: Hematocrit 44.3 % (37-47); Hemoglobin 15.0 g/dL (12.0-15.0); Immature Granulocytes Count 0.030 X10^3/uL (0.0-0.0); Mean Corp Hgb Conc 33.9 g/dL (32-36); Mean Corpuscular Volume 102.5 fL (81-99); Mean Platelet Vol. 9.8 fl (6.2-12.0); NRBC Flagged by Analyzer 0 % (0-5); Platelet Count 246 K/mm3 (150-450); RBC Distribution Width CV 11.8 % (11.6-14.6); RBC Distribution Width SD 45.0 fl (35.1-43.9); Red Blood Count 4.32 M/mm3 (4.2-5.4); White Blood Count 5.4 K/mm3 (4.4-11.0)
[2025-01-29 12:56] LABS: AST(SGOT) 39 U/L (<=31); Alanine Aminotransfer ALT/SGPT 34 U/L (<=34); Albumin, Serum 4.3 g/dL (3.4-4.8); Alkaline Phosphatase 62 U/L (35-104); Anion Gap 11 (5-15); BUN 16 mg/dL (4-19); BUN/Creat Ratio 20.1 RATIO (10-20); CRP 4.85 mg/L (0.0-3.0); Calcium,Total 9.6 mg/dL (7.6-11.0); Carbon Dioxide 27.0 mmol/L (21.0-32.0); Chloride 98 mmol/L (98-108); Cholesterol 188 mg/dL (<=200); Globulin 2.9 g/dL (2.2-4.2); Glucose 97 mg/dL (70-99); Low Density Lipoprotein Calc. 74 mg/dL; Potassium 4.4 mmol/L (3.3-5.1); Triglycerides 43 mg/dL; Very Low Density Lipoprotein 9 mg/dL (5-40); cholesterol:hdl ratio screen 1.79
== END | disposition home or self-care (01) ==
LOC: MTLAB 09:41
PROVIDERS: PCP Family Medicine; Referring Provider Family Medicine; Visit Provider Family Medicine
DX: M06.9 Rheumatoid arthritis, unspecified (principal); E78.5 Hyperlipidemia, unspecified; Z51.81 Encounter for therapeutic drug level monitoring
CPT/HCPCS: 36415; 80053; 80061; 85025; 85652; 86140